=== PATIENT | female | born 1955 | race Caucasian/White ===

== ENCOUNTER 2018-01-16 08:42 | Inpatient (IN) | payer MEDICARE, SELFPAY ==
[2018-01-15 12:33] VITALS: BMI 25.2
[2018-01-16] VITALS (14 sets, daily range): BP systolic 93–165; BP diastolic 60–99; PULSE 66–86; RESP 14–18; TEMP 36.2–36.8; O2SAT 92–98; BMI 25.2
--- NOTE | 2018-01-16 | DI.RAD.S_ITS ---
PROCEDURE: XR LUMBAR SPINE 2-3V INDICATIONS: L2-3, L3-4 LAMI AND FUSION TECHNIQUE: 2 views of the lumbar spine were acquired. COMPARISON: [facility], , L-SPINE W&WO CONTRAST, 03/23/2016, 13:45. FINDINGS: 2 intraoperative fluoroscopic views of the lumbar spine demonstrates interval postsurgical changes status post posterior fusion at L2-L4 with intervertebral spacers at L2-L3 and L3-L4. IMPRESSION: 1. Intraoperative fluoroscopic views demonstrate postsurgical changes at L2-L4. Dictated by: Dereje Osuna M.D. on 01/16/2018 at 20:11 Approved by: Dereje Osuna M.D. on 01/16/2018 at 20:13
--- NOTE | 2018-01-16 12:10 | PM.PREOP ---
Pre-operative Note Interval Note Pre-op Check: History & Physical Reviewed by Physician and Exam Performed
--- NOTE | 2018-01-16 12:20 | PM.OP.1 ---
Operative Date/Time/Diagnoses Date of procedure: 01/16/18 Time of procedure: 17:57 Pre-op diagnosis: Lumbar stenosis with radiculopathy Scoliosis Post-op diagnosis: same Procedure & Clinicians Procedure: L2-3, L3-4 anterior fusion with cage L2-3, L3-4 posterior fusion L2, L3, L4 screws Iliac crest bone graft L2-3, L3-4 laminectomy Use of microscope Placement of epidural catheter hardware removal of previous L45 screws Same procedure as scheduled: Yes Indications: [age] year old female with intractable pain from stenosis. They had failed conservative management and requested operative intervention. Risks and benefits of surgery were discussed and appropriate consents were obtained. Surgeon: Guy Ojeda Senior Sustainability Advisor: Natali Smith Anesthesia Type: General Operative Notes Findings: None Closure Type: primary Specimen(s): none sent Implants & Drains: Nuvasive XLIF and Reline MAS and open screws Applied: catheter Estimated Blood Loss (mL): 100 Procedure in detail: Patient was brought to the operating room and intubated on the table. Time-out was performed. They were then rolled over to the lateral decubitus position with the [id number]. The table was bent and they were taped down in the correct position. X-rays were taken to confirm a true AP and lateral. Preoperative antibiotics were given. The left flank and back was prepped and draped in standard sterile fashion. Using fluoroscopy, a 3 cm incision was made above the iliac crest. We bluntly dissected down with Metzenbaum scissors and split the 3 abdominal muscle layers. We dissected out the retroperitoneal space and using finger guidance, brought our 1st dilator down to the psoas muscle. Using neuromonitoring and fluoroscopy, we placed it through the psoas onto the L3-4 disc space in an anterior position and gradually pulled the dilator posteriorly along the disc space. We placed our guidewire and measured our depth for the retractor. We then dilated with the next 2 dilators and then placed our retractor over the dilators. Position was confirmed with fluoroscopy and the retractor was locked down to the bar. We opened up the retractor and checked with neuro monitoring. We then placed the isacc and again checked with neuro monitoring. The retractor was opened further and the ALL retractor was placed. An annulotomy was performed. We symptoms to pass the Hall across the disc space but could not get past the left L4 screw which was protruding up through the disc itself. At this point are as we would have to remove her hardware in the decubitus position. We used fluoro and made a 3 cm incision to the left of the midline. We used Bovie to come down to split the fascia and exposed the screws. The screws were removed. The wound was irrigated and a nylon stitch was placed on the skin. We then went back up to the lateral incision and again used our dilators to place our retractor and opened it up as before with monitoring and x-ray. We then could pass the Hall across the disc and released the lateral annulus. We then performed a complete diskectomy with ring curette, pituitary, box osteotome. We then used sequentially larger trials and confirmed under fluoroscopy. An XLIF cage was packed with Osteocell bone graft and impacted into the L3-4 disc space with fluoroscopy for the anterior fusion at this level. The wound was irrigated. The retractor was closed down. The isacc was removed. We carefully removed the retractor with direct visualization to make sure there was no neurovascular or abdominal injury. We then repeated this procedure at the L2-3 level. We used neural monitoring for dilators place, placed our retractor, did a complete diskectomy with lateral release, and placed another cage packed with bone graft at the L2-3 level for anterior fusion. Final x-rays were taken. The muscle fascia was closed, superficial tissue was closed. The skin was closed. Sterile dressings were placed. The patient was then rolled over on the well-padded prone position on the Reilly table. The back was again prepped and draped in standard sterile fashion. Using fluoroscopy for localization, a 10 cm incision was made in the midline utilizing her previous incision. We dissected down the right sided paraspinal muscles to expose the lamina and confirmed our position. We then exposed the transverse processes at the level of fusion. We exposed along her previous cortical screws and they were removed. We then began placing our screws. A bur was used to decorticate the junction of the facet and transverse process. We then advanced a gear shifter down the pedicle using neuro monitoring. We checked with the ball probe to confirm a floor and 4 torres on the pedicle. We then tapped also with neuro monitoring. We checked again with the ball probe and then placed our screw with neuro monitoring. The screws were placed in this fashion down the right pedicles of L2, L3, and L4. The bozena was loosely placed and x-rays were taken to confirm positioning and then the set screws were locked down. Using fluoro, we then extended her left-sided incision that we had made earlier and used Bovie to split down through the fascia. We then percutaneously placed a Jamshidi needle down the left pedicles of L2, L3 and L4 with fluoroscopy and monitoring. We used guidewires and then tapped and placed our percutaneous screws under fluoroscopy and monitoring. We then placed a bozena and locked it down. Final x-rays were taken We then brought in the microscope. A laminectomy was performed at L2-3 and L3-4 with a bur and Kerrison rongeurs. We carefully depress the dura to reach to the opposite side and decompress the entire central canal. We cleared out the neural foramen. In the end the ball probe could be placed cephalad and caudally across to the opposite side in the foramen and everything was opened. The wound was copiously irrigated. A small stab incision was made over the PSIS and a Jamshidi needle was placed into the iliac crest and several mL of bone marrow was aspirated. This was mixed with our locally harvested bone graft as well as the remaining Osteocell and placed in the posterolateral gutter for fusion at L2-3 and L3-4. An epidural catheter was primed with 8mL of 0.25% bupivacaine and 100 mcg fentanyl. The dura was depressed under the cephalad lamina with a ball probe and the epidural catheter was gently advanced 6 cm cephalad. The fascia was then closed. The epidural was then injected without resistance. The catheter was pulled and we closed more over the fascia. Vancomycin powder was placed in the wound. The superficial and skin were closed. Sterile dressing was placed. The patient was then rolled over, extubated, brought to the recovery room with no complications. Complications: none Condition: stable Disposition: PACU Plan for aftercare: Inpatient. Up with physical therapy.
[2018-01-16] MEDS: fentaNYL 100 MCG/2 ML INJ 50 MCG IV ×5 (12:55→19:13)
[2018-01-16] MEDS: CEFAZOLIN 2 GM/100 ML FROZ.PIGGY IV ×2 (13:59→20:56)
--- NOTE | 2018-01-16 14:21 | SUR.OPER ---
Right lateral on padded OR table. Head on pillow, gel axillary roll, pillow to support left arm. Legs flexed, pillows between legs, gel pad under down leg and ankle. Multiple passes of 3 inch cloth tape across shoulder, hip, upper and lower legs to secure patient on OR table.
--- NOTE | 2018-01-16 14:32 | SUR.OPER ---
Prone on spine table, head in foam head support, padded chest and pelvic supports, gel pad at knees, lower legs supported by pillows; nipples, genitalia and toes free of pressure, arms secured on foam padded arm boards at <90 degrees abduction. Tape over blanket at thigh secured to table.
[2018-01-16] MEDS: THROMBIN (BOVINE) 5,000 UNIT VIAL 5000 UNIT TOP (14:48)
[2018-01-16] MEDS: VANCOMYCIN 1,000 MG VIAL 1000 MG TOP (14:48)
[2018-01-16] MEDS: BUPIVACAINE 0.25% (PF) 8 ML, fentaNYL 100 MCG INJ (14:49)
[2018-01-16] MEDS: SODIUM CHLORIDE 0.9% 1,000 ML, GENTAMICIN 80 MG IRR ×2 (14:49→14:53)
[2018-01-16] MEDS: MEPERIDINE 50 MG/ML 25 MG IV (18:31)
[2018-01-16] MEDS: ONDANSETRON 4 MG/2 ML INJ IV (19:00)
[2018-01-16] MEDS: LORazepam 2 MG/ML SYRINGE 0.5 MG IV (19:14)
[2018-01-16] MEDS: HYDROCODONE/ACET 10/325 TABLET 2 TAB PO (20:11)
[2018-01-16] MEDS: hydrOXYzine pamoate 25 MG CAPSULE PO (20:14)
[2018-01-16] MEDS: LACTATED RINGERS 1,000 ML 125 ML IV (20:50)
[2018-01-16] MEDS: DULOXETINE 30 MG CAPSULE 60 MG PO (21:14)
[2018-01-16] MEDS: MELOXICAM 7.5 MG TABLET 15 MG PO (21:21)
[2018-01-16] MEDS: NICOTINE 1 EACH PO (21:22)
[2018-01-16] MEDS: LORazepam 1 MG TABLET 2 MG PO (21:25)
[2018-01-16] MEDS: TRAZODONE 50 MG TABLET 25 MG PO (21:25)
[2018-01-16] MEDS: PREGABALIN 75 MG CAPSULE PO (21:26)
[2018-01-16] MEDS: dilTIAZem CD 120 MG CAP PO (22:07)
[2018-01-16] MEDS: HYDROMORPHONE PCA 6 MG/30 ML PCA.VIAL IV (22:23)
--- NOTE | 2018-01-16 22:41 | PC.NURSE ---
Pt arrived to floor from PACU at 1935, A&Ox3, awake and conversive with staff. Pt c/o pain 02/16, PRN meds given per SEP. Pt denies numbness and tingling, able to wiggle toes bilaterally, +pps, bilateral foot SCD's applied. Denies nausea. RA 96%, LS clear. Dressing to lower back and L flank dressing CDI. Ingram patent, secured, and draining clear yellow urine. Pt orientated to room, call light, and bed controls. Call light in reach. BA active. Will continue to monitor.
[2018-01-17] MEDS: hydrOXYzine pamoate 25 MG CAPSULE PO ×4 (00:49→22:51)
[2018-01-17 00:57] VITALS: BP 135/86; PULSE 80; RESP 16; TEMP 36.7; O2SAT 91
[2018-01-17] MEDS: CEFAZOLIN 2 GM/100 ML FROZ.PIGGY IV (04:07)
[2018-01-17 04:13] VITALS: BP 130/75; PULSE 87; RESP 16; TEMP 37.2; O2SAT 91
[2018-01-17] MEDS: LACTATED RINGERS 1,000 ML 125 ML IV (05:06)
[2018-01-17] MEDS: HYDROMORPHONE PCA 6 MG/30 ML PCA.VIAL IV ×3 (05:59→21:21)
[2018-01-17 06:44] LABS: Hematocrit 35.2 % (36-46); Hemoglobin 11.9 g/dL (12.0-16.0)
[2018-01-17 08:00] VITALS: BP 151/84; PULSE 86; RESP 16; TEMP 37.1; O2SAT 92
[2018-01-17] MEDS: METHOCARBAMOL 500 MG TABLET 750 MG PO (08:09)
[2018-01-17] MEDS: DULOXETINE 30 MG CAPSULE 60 MG PO ×2 (08:09→21:19)
[2018-01-17] MEDS: DOCUSATE 100 MG CAPSULE PO (08:10)
[2018-01-17] MEDS: HYDROCODONE/ACET 10/325 TABLET 2 TAB PO ×2 (08:10→12:45)
[2018-01-17] MEDS: PREGABALIN 75 MG CAPSULE PO ×2 (08:10→21:20)
--- NOTE | 2018-01-17 08:10 | PM.PNPO.1 ---
Subjective Date Patient Seen: 01/17/18 Time Patient Seen: 08:11 Interval history: Rough night. Pain 8/10 currently. All in the back and radiating around to the groin. No leg pain. Exam Vital Signs (past 8 hours): - 01/17/18 00:57 01/17/18 04:13 Temperature 98.0 F 99.0 F Pulse Rate 80 87 Respiratory Rate 16 16 Blood Pressure 135/86 H 130/75 H Pulse Oximetry 91 91 Oxygen Delivery Method Room Air Const Orientation: alert and oriented x3 Back/Spine/Pelvis Other: 5/5 motor both lower extremities. Moderate drainage on posterior dressing. Objective Labs Result Diagrams: 01/17/18 06:20 Labs: Laboratory Results - last 24 hr 01/17/18 06:20 Hgb 11.9 L Hct 35.2 L Assessment & Plan Post-op Postoperative Procedures Operation Date: 01/16/18 11:15 Actual Procedures Side Surgeon p L2-3,L3-4 Laminectomy & Instru Ant/Post Fusion w/Bone Graft,Removal Old Screws Guy Ojeda MD stable status post laminectomy and fusion. We discussed pain control issues which are always difficult when someone comes in with a high preoperative narcotic tolerance. Mobilized with physical therapy. She did not tolerate the sequential compression devices on her feet, but we will mash filter cloth changer to calf SCDs as she has tolerated these before in the past. I anticipate several more days in the hospital. Time Spent With Patient less than 15 minutes Quality VTE Deep Vein Thrombosis/Pulmonary Embolism Present on Admission: No
[2018-01-17] MEDS: NICOTINE 1 EACH PO ×5 (08:12→22:52)
--- NOTE | 2018-01-17 08:13 | P.PN_ITS ---
Subjective Date Patient Seen: 01/17/18 Time Patient Seen: 08:11 Interval history: Rough night. Pain 8/10 currently. All in the back and radiating around to the groin. No leg pain. Exam Vital Signs (past 8 hours): - 01/17/18 00:57 01/17/18 04:13 Temperature 98.0 F 99.0 F Pulse Rate 80 87 Respiratory Rate 16 16 Blood Pressure 135/86 H 130/75 H Pulse Oximetry 91 91 Oxygen Delivery Method Room Air Const Orientation: alert and oriented x3 Back/Spine/Pelvis Other: 5/5 motor both lower extremities. Moderate drainage on posterior dressing. Objective Labs Result Diagrams: 01/17/18 06:20 Labs: Laboratory Results - last 24 hr 01/17/18 06:20 Hgb 11.9 L Hct 35.2 L Assessment & Plan Post-op Postoperative Procedures Operation Date: 01/16/18 11:15 Actual Procedures Side Surgeon p L2-3,L3-4 Laminectomy & Instru Ant/Post Fusion w/Bone Graft,Removal Old Screws Guy Ojeda MD stable status post laminectomy and fusion. We discussed pain control issues which are always difficult when someone comes in with a high preoperative narcotic tolerance. Mobilized with physical therapy. She did not tolerate the sequential compression devices on her feet, but we will change agent to calf SCDs as she has tolerated these before in the past. I anticipate several more days in the hospital. Time Spent With Patient less than 15 minutes Quality VTE Deep Vein Thrombosis/Pulmonary Embolism Present on Admission: No
[2018-01-17] MEDS: ONDANSETRON 4 MG/2 ML INJ IV (10:32)
[2018-01-17] MEDS: NALBUPHINE 20 MG/ML AMPUL 5 MG IV (10:42)
[2018-01-17 12:00] VITALS: BP 143/78; PULSE 88; RESP 14; TEMP 37.3; O2SAT 91
--- NOTE | 2018-01-17 12:03 | PT.IPTN ---
Current Diagnoses Scoliosis, unspecified (01/16/18) Spinal stenosis, lumbar region with neurogenic claudication (01/16/18) Other specified postprocedural states (01/16/18) Surgery Performed Operation Date: 01/16/18 11:15 Actual Procedures p L2-3,L3-4 Laminectomy & Instru Ant/Post Fusion w/Bone Graft,Removal Old Screws - Guy Ojeda MD Physical Therapy Treatment Note M3 PT-IP Subjective Start: 01/17/18 12:00 Freq: NEEDED Status: Active Protocol: Document 01/17/18 12:00 IJS (Rec: 01/17/18 12:02 IJS [id number]) Subjective Physical Therapy Visit Type Visit Start Time 11:55 Visit Stop Time 11:56 Total Visit Minutes 1 Notes Patient on hold this a.m. secondary to poor pain control . Nursing agreed and is contacting the MD to get new pain orders. Will check again this p.m.
[2018-01-17] MEDS: METHOCARBAMOL 500 MG TABLET 1500 MG PO (12:45)
--- NOTE | 2018-01-17 13:13 | CM.DANOTE ---
DCP Assessment/Chart Review Patient is a 62 year old female who was admitted on 01/16/18 for Lami Fusion bone graft. Pt has MCR for insurance and her PCP is Dr. Degroot. EMR was reviewed. Per MD, pt likely here another few days and to mobilize with PT. Per PT, eval deferred due to pain management issues. SW attempted bedside assessment and pt sleeping soundly after pain medication. Plan: SW to follow closely later today for bedside assessment and PT eval and recommendations. MIGUELITO Carcamo
--- NOTE | 2018-01-17 15:27 | PC.NURSE ---
Ortho: Lots of pain today. Discussed issue w/DR. Ojeda x2. This am had orals w/senior science consultant then called the second time and changed senior science consultant dose and added cont drip as well. Pt reporting she is much more comfortable. was asked about steriods, he doesn't want to use those. Pt has not been up w/PT today yet, but they will try one more time later. Has not wanted to eat today but said she might take a little dinner. Has had a lot of sciatica type pain in her back radiating down the legs bilat. Has had an ice pack to the back and a warm blanket to the abd which she says is helpful. Ref to allow dressing change for today. Pt says she is to painful to move that much and back is to sensative to remove the tape. Hopefully will feel better tomorrow. 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
[2018-01-17 15:59] VITALS: BP 111/71; PULSE 104; RESP 18; TEMP 36.9; O2SAT 92
--- NOTE | 2018-01-17 16:35 | PT.IIE ---
Current Diagnoses Scoliosis, unspecified (01/16/18) Spinal stenosis, lumbar region with neurogenic claudication (01/16/18) Other specified postprocedural states (01/16/18) Surgery Performed Operation Date: 01/16/18 11:15 Actual Procedures p L2-3,L3-4 Laminectomy & Instru Ant/Post Fusion w/Bone Graft,Removal Old Screws - Guy Ojeda MD Surgical History (Last Updated 01/15/18 @ 13:37 by Denise Navarro RN) History of section (Acute) History of lumbar fusion (Acute) History of reconstruction of left breast (Acute) History of removal of Port-a-Cath (Acute) Hx of LASIK (Acute) Hx of left mastectomy (Acute) Hx of tonsillectomy (Acute) Medical History (Last Updated 01/15/18 @ 13:41 by Denise Navarro RN) Anxiety (Acute) Asthma (Acute) Bug bite (Acute) COPD (chronic obstructive pulmonary disease) (Acute) Cancer of left breast (Acute) Cellulitis of right lower extremity (Acute) Chronic pain (Acute) Constipation (Acute) DDD (degenerative disc disease), cervical (Acute) DDD (degenerative disc disease), lumbar (Acute) Depression (Acute) Fibromyalgia (Acute) GERD (gastroesophageal reflux disease) (Acute) HTN (hypertension) (Acute) History of hysterectomy (Acute) Melanoma (Acute) Neuropathy (Acute) Panic attacks (Acute) Pneumonia (Acute) Pneumothorax (Acute) Raynaud's phenomenon (Acute) SCC (squamous cell carcinoma) (Acute) Stomach ulcer (Acute) Urinary tract infection (Acute) Physical Therapy Inpatient Evaluation/Re-Eval M1 PT/OT-IP Prior Functional Status Start: 01/17/18 12:00 Freq: NEEDED Status: Active Protocol: Document 01/17/18 15:50 MDD (Rec: 01/17/18 17:11 MDD [id number]) Medical Review Prior Functional Status Medical History Reviewed Yes Mobility and Gait Independent with no AD. Does have a single point cane at home. Activities of Daily Living and IADL's Independent. Prior Functional Level (Other details) Does not work due to disability. Social History Household Members family children Living Arrangements House Number of Floors (Floors) 3 or More Floors Number of Stairs To Enter/Railing? 14 stairs to second floor bedroom, railing on L, 2 flights total. Home Environment Standard Height Toilet Tub/Shower Home Equipment Straight Cane Grab Bars Near Toilet Grab Bars In Shower Employment Status Unemployed Additional Social History Comment Complicated family situation at home. Ex will be staying with her to assist initially after hospital d/c. M2 PT-IP Current Condition Start: 01/17/18 12:00 Freq: NEEDED Status: Active Protocol: Document 01/17/18 15:50 MDD (Rec: 01/17/18 17:11 [facility] [id number]) Physical Therapy Current Condition Current Condition Evaluation Date 01/17/18 Treatment Diagnosis L2-3, L3-4 anterior fusion, low back pain, impaired mobility Onset Date 01/16/18 Precautions Lumbar Precautions Log Roll No Twisting Limit Bending Lifting Restriction of 10 lbs Gait Belt above Incisional Area M3 PT-IP Subjective Start: 01/17/18 12:00 Freq: NEEDED Status: Active Protocol: Document 01/17/18 15:50 MDD (Rec: 01/17/18 17:11 [facility] [id number]) Subjective Physical Therapy Visit Type Type Initial Evaluation Visit Start Time 15:50 Visit Stop Time 16:35 Total Visit Minutes 45 Number of MEAL TEMPERER Visits 0 Physical Therapy Visit Comments Patient Comments Pt complaining of high pain levels throughout the day. Very drowsy from pain medications, but agreeable to participate in therapy on 3rd attempt. Short Term Goals improve mobility for removal of perez catheter Therapy Pain Assessment Pain When Pain Assessed At Rest Pain Present Pain Present Pain Reported Location Back Intensity 7 Scale Used Numeric (1 - 10) Description Aching Acute Pain Behaviors Facial Grimacing Guarding Pain Management Techniques Timing of Activity with Medications M4 PT-IP Mobility and Gait Start: 01/17/18 12:00 Freq: NEEDED Status: Active Protocol: Document 01/17/18 15:50 MDD (Rec: 01/17/18 17:11 MDD [id number]) PT-Bed Mobility Assessment Rolling Type of Rolling Log Rolling Roll to Right Level of Assist Standby Assistance Supine to Sit Supine to Sit Standby Assistance Head of Bed Elevated Sit to Supine Sit to Supine Standby Assistance Head of Bed Elevated Scooting Scooting to Edge of Bed Standby Assistance PT-Transfer Assessment Sit to and From Stand Sit to and from Stand Standby Assistance Equipment Transfer Assistive Device Gait Belt Front Wheeled Walker Orthotic/Prosthetic Devices or Brace: No Transfers Transfer Destination Bed Transfer Ability Level of Assist Standby Assistance Contact Guard Assistance Gait Assessment Gait Gait Assistance Required: Contact Guard Assist Distance (Feet) (feet) 20 Able to Maintain Weight Bearing Status Yes During Gait Assistive Devices Assistive Device Gait Belt Front Wheeled Walker Orthotic/Prosthetic Devices or Brace: No Gait Deviations General Gait Pattern Within Normal Limits Antalgic PT-Balance Assessment Sitting Balance and Reactions Static Sitting Balance Ability Normal Dynamic Sitting Balance Ability Normal Standing Balance and Reactions Static Standing Balance Ability Normal M5 PT-IP Objective Assessments Start: 01/17/18 12:00 Freq: NEEDED Status: Active Protocol: Document 01/17/18 15:50 MDD (Rec: 01/17/18 17:11 MDD [id number]) Orientation Orientation/Cognition Level of Alertness Lethargic Orientation Name Age Birthday Month Date Year Day of Week Place Situation Language Function Ability No Deficits Noted Safety Awareness Understands Safety Issues Memory Description No Deficits Noted Gross Range of Motion Upper Extremity ROM Assessment Within Functional Limits Lower Extremity ROM Assessment Within Functional Limits Strength Lower Extremity Strength Assessment Within Functional Limits Coordination Assessment Gross Coordination Gross Coordination WNL Sensation Assessment Sensation Gross Sensation Right LE Impaired Left LE Impaired Light Touch Impaired Sensation Description Numbness Tingling Comments Sensation Comments 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 Today reports mild tingling/numb sensation up to distal knee B. Muscle Tone Muscle Tone WNL Yes M6 PT-IP Treatment Start: 01/17/18 12:00 Freq: NEEDED Status: Active Protocol: Document 01/17/18 15:50 MDD (Rec: 01/17/18 17:11 MDD [id number]) Physical Therapy Treatment Exercises Exercises Ankle Pumps Education Education Provided Precautions Safety M7 PT-IP Assessment and Plan Start: 01/17/18 12:00 Freq: NEEDED Status: Active Protocol: Document 01/17/18 15:50 MDD (Rec: 01/17/18 17:11 MDD [id number]) PT Summary Assessment and Plan Potential Rehabilitation Potential Excellent Status of Condition at Evaluation Stable Summary Impairments Pain Bed Mobility Transfers Gait Activity Tolerance Progress Towards Goals Progressing Toward Goals Slow Progress due to Pain Assessment Summary Despite high pain levels throughout the day, pt demos ability to safely ambulate in room with front wheeled walker and perform bed mobility with SBA and head of bed elevated. Goals Bed Mobility Goal Independent Transfer Goal Independent Gait Goal Independent Gait Distance 50 feet on level ground with least restrictive AD Other Goals Ascend/descend 14 steps with L handrail with SBA Days to Meet Goals 3 Frequency of Treatment Frequency Of Treatment Twice a Day Treatment Plan Physical Therapy Treatment Plan Bed Mobility Training Transfer Training Gait Training Therapeutic Exercise Post Op Education Discharge Planning Recommendations To Nursing Amount of Assist Needed Standby Assistance 1 Person Assist Discharge Recommendations PT Discharge Recommendations Home Home with Assistance
[2018-01-17] MEDS: LORATADINE 10 MG TABLET PO (16:48)
--- NOTE | 2018-01-17 17:13 | PC.NURSE ---
Pt awake and alert in bed. Reports good pain control this afternoon and willing to work with P.T. Is able to log roll self, sit at edge of bed, stand and ambulate around room. Reports increasing pain with activity, but pursues and uses foundation stage teacher appropriately. Returned to bed and positioned for comfort. Dressing changed to graft site and back as per dayshift instruction per MD. Coversite in place x 2. See assessment.
--- NOTE | 2018-01-17 17:14 | OT.IP.TRT ---
Current Diagnoses Scoliosis, unspecified (01/16/18) Spinal stenosis, lumbar region with neurogenic claudication (01/16/18) Other specified postprocedural states (01/16/18) Surgery Performed Operation Date: 01/16/18 11:15 Actual Procedures p L2-3,L3-4 Laminectomy & Instru Ant/Post Fusion w/Bone Graft,Removal Old Screws - Guy Ojeda MD Occupational Therapy Treatment Note M3 OT- IP Subjective and Pain Start: 01/17/18 17:12 Freq: Status: Active Protocol: Document 01/17/18 17:12 PJM (Rec: 01/17/18 17:14 PJM [id number]) OT- Subjective Occupational Therapy Visit Type Type Administrative Note Visit Start Time 15:05 Notes OT referral received. Pt not appropriate for OT evaluation today due to decreased pain control. Will initiate eval in AM as medical status permits.
[2018-01-17] MEDS: diphenhydrAMINE 25 MG TABLET PO (18:30)
[2018-01-17 20:44] VITALS: BP 94/60; PULSE 90; RESP 20; TEMP 36.9; O2SAT 92
[2018-01-17] MEDS: dilTIAZem CD 180 MG CAP PO (21:18)
[2018-01-17] MEDS: dilTIAZem CD 120 MG CAP PO (21:18)
[2018-01-17] MEDS: LORazepam 1 MG TABLET 2 MG PO (21:19)
[2018-01-17] MEDS: MELOXICAM 7.5 MG TABLET 15 MG PO (21:20)
[2018-01-17] MEDS: TRAZODONE 50 MG TABLET 25 MG PO (21:21)
[2018-01-18] VITALS (7 sets, daily range): BP systolic 91–124; BP diastolic 52–71; PULSE 68–86; RESP 12–19; TEMP 36.6–37.6; O2SAT 90–98
[2018-01-18] MEDS: SODIUM CHLORIDE 0.9% 500 ML 21 ML IV (05:05)
[2018-01-18] MEDS: HYDROMORPHONE PCA 6 MG/30 ML PCA.VIAL IV ×3 (06:02→21:29)
[2018-01-18] MEDS: NICOTINE 1 EACH PO ×8 (06:19→23:50)
--- NOTE | 2018-01-18 08:54 | CM.DANOTE ---
Per PT/OT, pt remained to painful yesterday to eval and assess for d/c needs and will attempt again this morning. Pt not medically stable to d/c yet today. SW met bedside with pt and explained role and pt was grimacing in pain and stated she has not been sleeping well and is still very painful. Pt confirms that she lives in [place] with her adult Dtr and 2 or 3 grandchildren and they are available for assist if needed at d/c. Pt also states that her exhusband will be staying with them to assist at discharge. Pt denies any hx of HH or SNF but states that if she is still in this much pain she would be agreeable to HH or other recommendations. Plan: SW to follow closely later today after PT/OT eval and recommendations to determine if pt will be safe for d/c home with family support and r/o HH. 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 Is this patient on Medicare? Yes Is the admit diagnosis the same? Yes Prior Living Arrangements House Household Members family children Type of transporation used prior to Drives own vehicle admit Independent with ADL's Yes Is patient alert and oriented? Yes Discharge Plan Home with Home Health Review Status In Process Next Review Type Discharge Review Document 01/18/18 08:53 BF (Rec: 01/18/18 08:54 [id number]) Discharge Planning Assessment Assigned Wind Tunnel Mechanic JOB PLACEMENT SPECIALIST History Provided By Patient Medical Record Has Patient been admitted in last 30 No days? Is this patient on Medicare? Yes Is the admit diagnosis the same? Yes Prior Living Arrangements House Household Members family children Type of transporation used prior to Drives own vehicle admit Independent with ADL's Yes Is patient alert and oriented? Yes Community Services Needed at Discharge Physical Therapy Occupational Therapy Home Health Nurse Discharge Plan Home with Home Health Transportation Arrangement Family can provide transport If patient plan is home with home health No: Waiting for PT/OT eval : Has signed face to face form been completed? Review Status In Process Next Review Type Discharge Review
--- NOTE | 2018-01-18 09:06 | P.PN_ITS ---
Subjective Date Patient Seen: 01/18/18 Time Patient Seen: 09:00 Interval history: Patient seen bedside s/p L23 and L34 laminectomies and instrumented anterior/posterior fusion with bone graft, removal old screws POD # 2. Patient states that pain is well controlled but feels very tired and does not like being woken up constantly. She does admit to pain with movement. She would like to go home, but has to enter her house via a six-step ladder. We discussed that this breaks her spinal precautions but she is insistent that she has no other place to go. Exam Vital Signs (past 8 hours): - 01/18/18 06:02 Temperature 99.5 F Pulse Rate 76 Respiratory Rate 16 Blood Pressure 118/70 Pulse Oximetry 91 Oxygen Delivery Method Room Air Oxygen Flow Rate 0 Narrative Exam Narrative: Patient is a well-developed well nourished in no acute distress. Patient is alert and oriented x3. On examination the dressing is clean dry and intact. She has full range of motion in the ankle 2+ pulses and calves are soft and compressible. Sensation is intact in bilateral lower extremities. Objective Labs Result Diagrams: 01/17/18 06:20 Assessment & Plan Post-op (1) Lumbar stenosis with neurogenic claudication: Current Visit: Yes Status: Acute Postoperative Procedures Operation Date: 01/16/18 11:15 Actual Procedures Side Surgeon p L2-3,L3-4 Laminectomy & Instru Ant/Post Fusion w/Bone Graft,Removal Old Screws Guy Ojeda MD Patient is postop day 2 status post procedure. She has been working with PT and OT and would like to go home. She has extreme pain with movement. In addition, she does have to climb a 6 step ladder to enter her home. This break her spinal precautions and could be a barrier to going home. Continue with PT and OT, consult discharge planning. All questions answered at time of the exam. Time Spent With Patient less than 15 minutes Quality VTE Deep Vein Thrombosis/Pulmonary Embolism Present on Admission: No
[2018-01-18] MEDS: METHOCARBAMOL 500 MG TABLET 1500 MG PO (10:15)
[2018-01-18] MEDS: HYDROCODONE/ACET 10/325 TABLET 2 TAB PO (10:16)
[2018-01-18] MEDS: DULOXETINE 30 MG CAPSULE 60 MG PO ×2 (10:17→21:23)
[2018-01-18] MEDS: PREGABALIN 75 MG CAPSULE PO ×2 (10:17→21:24)
[2018-01-18] MEDS: DOCUSATE 100 MG CAPSULE PO ×2 (10:17→21:23)
--- NOTE | 2018-01-18 11:14 | PT.IPTN ---
Current Diagnoses Scoliosis, unspecified (01/16/18) Spinal stenosis, lumbar region with neurogenic claudication (01/16/18) Other specified postprocedural states (01/16/18) Surgery Performed Operation Date: 01/16/18 11:15 Actual Procedures p L2-3,L3-4 Laminectomy & Instru Ant/Post Fusion w/Bone Graft,Removal Old Screws - Guy Ojeda MD Physical Therapy Treatment Note M2 PT-IP Current Condition Start: 01/17/18 12:00 Freq: NEEDED Status: Active Protocol: Document 01/17/18 15:50 MDD (Rec: 01/17/18 17:11 MDD [id number]) Physical Therapy Current Condition Current Condition Evaluation Date 01/17/18 Treatment Diagnosis L2-3, L3-4 anterior fusion, low back pain, impaired mobility Onset Date 01/16/18 Precautions Lumbar Precautions Log Roll No Twisting Limit Bending Lifting Restriction of 10 lbs Gait Belt above Incisional Area M3 PT-IP Subjective Start: 01/17/18 12:00 Freq: NEEDED Status: Active Protocol: Document 01/18/18 13:52 MDD (Rec: 01/18/18 14:03 MDD [email or web address]) Subjective Physical Therapy Visit Type Type Treatment Note Visit Start Time 10:48 Visit Stop Time 11:14 Total Visit Minutes 26 Number of BASEBALL SCOUT Visits 0 Physical Therapy Visit Comments Patient Comments Pt reports feeling a bit better this morning. Agreeable to participate with PT for brief session. Therapy Pain Assessment Pain When Pain Assessed At Rest Pain Present Pain Present Pain Reported Location Groin Intensity 7 Scale Used Numeric (1 - 10) Description Aching Pain Behaviors Facial Grimacing Guarding M4 PT-IP Mobility and Gait Start: 01/17/18 12:00 Freq: NEEDED Status: Active Protocol: Document 01/17/18 15:50 MDD (Rec: 01/17/18 17:11 MDD [id number]) PT-Bed Mobility Assessment Rolling Type of Rolling Log Rolling Roll to Right Level of Assist Standby Assistance Supine to Sit Supine to Sit Standby Assistance Head of Bed Elevated Sit to Supine Sit to Supine Standby Assistance Head of Bed Elevated Scooting Scooting to Edge of Bed Standby Assistance PT-Transfer Assessment Sit to and From Stand Sit to and from Stand Standby Assistance Equipment Transfer Assistive Device Gait Belt Front Wheeled Walker Orthotic/Prosthetic Devices or Brace: No Transfers Transfer Destination Bed Transfer Ability Level of Assist Standby Assistance Contact Guard Assistance Gait Assessment Gait Gait Assistance Required: Contact Guard Assist Distance (Feet) (feet) 20 Able to Maintain Weight Bearing Status Yes During Gait Assistive Devices Assistive Device Gait Belt Front Wheeled Walker Orthotic/Prosthetic Devices or Brace: No Gait Deviations General Gait Pattern Within Normal Limits Antalgic PT-Balance Assessment Sitting Balance and Reactions Static Sitting Balance Ability Normal Dynamic Sitting Balance Ability Normal Standing Balance and Reactions Static Standing Balance Ability Normal M5 PT-IP Objective Assessments Start: 01/17/18 12:00 Freq: NEEDED Status: Active Protocol: Document 01/17/18 15:50 MDD (Rec: 01/17/18 17:11 MDD [id number]) Orientation Orientation/Cognition Level of Alertness Lethargic Orientation Name Age Birthday Month Date Year Day of Week Place Situation Language Function Ability No Deficits Noted Safety Awareness Understands Safety Issues Memory Description No Deficits Noted Gross Range of Motion Upper Extremity ROM Assessment Within Functional Limits Lower Extremity ROM Assessment Within Functional Limits Strength Lower Extremity Strength Assessment Within Functional Limits Coordination Assessment Gross Coordination Gross Coordination WNL Sensation Assessment Sensation Gross Sensation Right LE Impaired Left LE Impaired Light Touch Impaired Sensation Description Numbness Tingling Comments Sensation Comments 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 Today reports mild tingling/numb sensation up to distal knee B. Muscle Tone Muscle Tone WNL Yes M6 PT-IP Treatment Start: 01/17/18 12:00 Freq: NEEDED Status: Active Protocol: Document 01/18/18 13:52 MDD (Rec: 01/18/18 14:03 MDD [id number]) Physical Therapy Treatment Other Treatments Other Treatment Performed Reviewed bed mobility, pt demo 's supine to sit with SBA with HOB elevated. Sit to stand with SBA, demo's impulsiveness with movement. Demo's ability to stand 5 minutes total with varying UE support on walker when performing IV adjustments, perez adjustment etc. Performed short gait in room x 25 feet and demo'd stand to sit transfer w/ cueing for proper sequencing/ use of armrests. M7 PT-IP Assessment and Plan Start: 01/17/18 12:00 Freq: NEEDED Status: Active Protocol: Document 01/18/18 13:52 MDD (Rec: 01/18/18 14:03 MDD [email or web address]) PT Summary Assessment and Plan Potential Rehabilitation Potential Good Status of Condition at Evaluation Stable Summary Impairments Pain ROM Transfers Gait Activity Tolerance Assessment Summary Pain control continues to be challenging. Pt with very low activity tolerance due to pain. Additional information regarding d/c came to light today with pt reporting 6 step ladder to enter her home. Despite discussion regarding spinal precautions, pt denies this is a problem. Will not discuss options of alternative d/c at this time. Goals Bed Mobility Goal Independent Transfer Goal Independent Gait Goal Independent Gait Distance 50 feet on level ground with least restrictive AD Other Goals Ascend/descend 14 steps with L handrail with SBA Days to Meet Goals 2 Frequency of Treatment Frequency Of Treatment Twice a Day Treatment Plan Physical Therapy Treatment Plan Bed Mobility Training Transfer Training Gait Training Therapeutic Exercise Post Op Education Discharge Planning Recommendations To Nursing Amount of Assist Needed Standby Assistance 1 Person Assist Discharge Recommendations PT Discharge Recommendations Home Home with Assistance Other Discharge Recommendations Consider d/c to stepmother's home, or somewhere she is better able to access home Equipment Needed for Home Before front wheeled walker Discharge
--- NOTE | 2018-01-18 12:48 | OT.IP.EVAL ---
Current Diagnoses Scoliosis, unspecified (01/16/18) Spinal stenosis, lumbar region with neurogenic claudication (01/16/18) Other specified postprocedural states (01/16/18) Surgery Performed Operation Date: 01/16/18 11:15 Actual Procedures p L2-3,L3-4 Laminectomy & Instru Ant/Post Fusion w/Bone Graft,Removal Old Screws - Guy Ojeda MD Past Medical History (Last Updated 01/15/18 @ 13:41 by Denise Navarro RN) Anxiety (Acute) Asthma (Acute) Bug bite (Acute) COPD (chronic obstructive pulmonary disease) (Acute) Cancer of left breast (Acute) Cellulitis of right lower extremity (Acute) Chronic pain (Acute) Constipation (Acute) DDD (degenerative disc disease), cervical (Acute) DDD (degenerative disc disease), lumbar (Acute) Depression (Acute) Fibromyalgia (Acute) GERD (gastroesophageal reflux disease) (Acute) HTN (hypertension) (Acute) History of hysterectomy (Acute) Melanoma (Acute) Neuropathy (Acute) Panic attacks (Acute) Pneumonia (Acute) Pneumothorax (Acute) Raynaud's phenomenon (Acute) SCC (squamous cell carcinoma) (Acute) Stomach ulcer (Acute) Urinary tract infection (Acute) Surgical History (Last Updated 01/15/18 @ 13:37 by Denise Navarro RN) History of section (Acute) History of lumbar fusion (Acute) History of reconstruction of left breast (Acute) History of removal of Port-a-Cath (Acute) Hx of LASIK (Acute) Hx of left mastectomy (Acute) Hx of tonsillectomy (Acute) Occupational Therapy Inpatient Evaluation/Re-Eval M1 PT/OT-IP Prior Functional Status Start: 01/17/18 12:00 Freq: NEEDED Status: Active Protocol: Document 01/18/18 11:29 ADH (Rec: 01/18/18 12:48 ADH [id number]) Medical Review Prior Functional Status Medical History Reviewed Yes Mobility and Gait Independent with no AD. Does have a single point cane at home. Activities of Daily Living and IADL's Independent. Prior Functional Level (Other details) Does not work due to disability. Social History Household Members family children Living Arrangements House Number of Stairs To Enter/Railing? 6 step ladder d/t current home renovations Home Environment Walk in Shower Tub/Shower Additional Social History Comment pt reports bathroom on entry level financial analyst, but both showers are up flight of stairs. Pt reports no current hot water at home d /t renovation. Pt typically showers at mother's home nearby, which is accessible and has hot water. Pt denies ability to stay there after d/ c, d/t personal conflict with mother. M2 OT-IP Current Condition Start: 01/17/18 17:12 Freq: Status: Active Protocol: Document 01/18/18 11:29 ADH (Rec: 01/18/18 12:48 ADH [id number]) Occupational Therapy Current Condition Current Condition Evaluation Date 01/18/18 Treatment Diagnosis laminectomy Diagnosis Onset Date 01/16/18 Post Operative Precautions Lumbar Precautions Log Roll No Twisting Limit Bending Lifting Restriction of 10 lbs Gait Belt above Incisional Area M3 OT- IP Subjective and Pain Start: 01/17/18 17:12 Freq: Status: Active Protocol: Document 01/18/18 11:29 ADH (Rec: 01/18/18 12:48 ADH [id number]) OT- Subjective Occupational Therapy Visit Type Type Initial Evaluation Visit Start Time 11:04 Visit Stop Time 11:29 Notes Pt agreeable to OT services on 3rd attempt. First two attempts pt premedicated but continued to report c/o 7/10 pain, groggy, somnolent. Pt reporting insufficient pain relief despite use of FREIGHT RATE ANALYST. Pt unable to eat entire breakfast d/t sleepiness, likely impacted by pain management. Occupational Therapy Visit Comments Patient/Caregiver Goals pt stated goal to return home with family support. OT Pain Assessment Pain When Pain Assessed At Rest Pain Present Pain Present Pain Reported Location Groin Intensity 7 Scale Used Numeric (1 - 10) Pain Behaviors Calling Out Facial Grimacing Guarding Moaning Restlessness Wincing Management Techniques Distraction Re-positioning Timing of Activity with Medications M4 OT- IP ADL's Start: 01/17/18 17:12 Freq: Status: Active Protocol: Document 01/18/18 11:29 ADH (Rec: 01/18/18 12:48 ADH [id number]) OT XLP-[id number] General Evaluation Self-Feeding Ability Independent OT ADL-Toileting General Evaluation Toileting Ability Minimal Assistance Devices Toileting Assistive Devices Raised Toilet Seat Toilet Seat Rails Comments OT Toileting Comments Pt able to amb in/out of bathroom with BSC over toilet, with FWW and min A. Pt fatigued with effort, agreeable to rest break. Will reassess once catheter is removed. M6 OT- IP Functional Cognition Start: 01/17/18 17:12 Freq: Status: Active Protocol: Document 01/18/18 11:29 ADH (Rec: 01/18/18 12:48 ADH [id number]) Cognitive Factors Limiting Selfcare Function Cognitive Ability Level of Alertness Alert Drowsy Patient Orientation Name Month Year Day of Week Situation Attention Span Ability Capable of Focused Attention Ability to Follow Commands Able to Follow One Step Commands Able to Follow Multi-Step Commands Memory Description No Deficits Noted Safety Awareness Decreased Recall of Precautions Decreased Ability to Apply Precautions Underestimates Need for Assistance Problem Solving Ability Needs Assist to Identify Solutions OT- Vision and Hearing OT- Hearing Assessment OT- Hearing Assessment WFL OT- Vision Assessment Visual Acuity WFL M7 OT- IP Mobility and Balance Start: 01/17/18 17:12 Freq: Status: Active Protocol: Document 01/18/18 11:29 ADH (Rec: 01/18/18 12:48 ADH [id number]) OT-Transfer Assessment Sit to and From Stand Sit to and from Stand Minimal Assistance Use of Upper Extremities Transfers Transfer Ability Contact Guard Assistance Minimal Assistance Use of Upper Extremities Technique Transfer Destination Chair Toilet Transfer Technique Stand Step Pivot Devices Transfer Assistive Devices Gait Belt Front Wheeled Walker OT- Gait Assessment Gait Gait Assistance Required: Minimum Assistance Distance (Feet) (feet) 12 Assistive Devices Assistive Device Gait Belt Front Wheeled Walker M8 OT- IP Objective Assessments Start: 01/17/18 17:12 Freq: Status: Active Protocol: Document 01/18/18 11:29 ADH (Rec: 01/18/18 12:48 ADH [id number]) OT Gross Range of Motion Upper Extremity Range of Motion Assessment Within Functional Limits OT Strength Upper Extremity Strength Assessment Within Functional Limits OT- Coordination Assessment Upper Extremity Finger Tapping Test Within Functional Limits M9 OT- IP Assessment and Plan Start: 01/17/18 17:12 Freq: Status: Active Protocol: Document 01/18/18 11:29 ADH (Rec: 01/18/18 12:48 ADH [id number]) OT Summary Assessment and Plan Potential Rehabilitation Potential Good Analytic Complexity at Evaluation Low Summary OT Impairments Pain Functional Cognition Functional Mobility Progress Towards Goals Slow Progress due to Pain Assessment Summary Pt with slow recovery from back surgery, most severely limited by high pain medicine tolerance. Post op day 2 pt continues to limit OOB activity and functional mobility r/t pain control despite premedication and FREIGHT RATE ANALYST. Once up pt able to ambulate within room with FWW and min A of 1, increasingly flexed posture needing cues to straighten legs and walk erect . Pt with poor d/c plan, with limited insight into current abilities, current progress, and safety awareness. Pt not at baseline, nor is she able to access her home (as the access is reported) at this time. Recommend SNF d/t pt's increased need for A for all functional mobility and self- care at this time. Goals Dressing Goal Contact Guard Assistance Toileting Goal Standby Assistance Treatment Plan Other Treatment Recommendations and Next lb dressing, toileting and Treatment Focus functional transfers Discharge Recommendations OT Discharge Recommendations SNF Rehab
[2018-01-18 15:36] LABS: Appearance Urine UA CLEAR; Bilirubin Urine UA NEGATIVE (NEGATIVE); Color Urine UA YELLOW; Glucose Urine UA NEGATIVE (Normal); Ketones Urine UA TRACE (NEGATIVE); Leukocyte Esterase Urine UA TRACE (NEGATIVE); Nitrite Urine UA Negative (Negative); Occult Blood Urine UA TRACE-INTACT (Negative); Protein Urine UA 1+ (Negative); Urobilinogen Urine UA 0.2 E.U./dL (0.2)
[2018-01-18 15:42] LABS: Bacteria Urine Few (2-10); RBC Urine 1-5/HPF (0-5/HPF); Squamous Epithelial Cell Urine 0-1 /HPF; WBC Urine 1-5/HPF (0-5/HPF)
[2018-01-18 15:43] LABS: Hyaline Casts Urine 10-30/LPF
[2018-01-18 15:44] LABS: Culture Indicated Urine Specimen Cultured
--- NOTE | 2018-01-18 15:57 | PC.NURSE ---
Ortho: SI'm doing much better today. Has been up and amb, in the chair. Following her lami precautions but does need to be cued. Ingram out and pt concerned about infection and ua was obtained and sent to lab per protocol. No nausea today or itching. 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 Will make MD aware. Sat up in chair and able to consume meals. Given IS and instructed in use. Cont w/poc.
--- NOTE | 2018-01-18 16:23 | PT.IPTN ---
Current Diagnoses Scoliosis, unspecified (01/16/18) Spinal stenosis, lumbar region with neurogenic claudication (01/16/18) Other specified postprocedural states (01/16/18) Surgery Performed Operation Date: 01/16/18 11:15 Actual Procedures p L2-3,L3-4 Laminectomy & Instru Ant/Post Fusion w/Bone Graft,Removal Old Screws - Guy Ojeda MD Physical Therapy Treatment Note M2 PT-IP Current Condition Start: 01/17/18 12:00 Freq: NEEDED Status: Active Protocol: Document 01/17/18 15:50 MDD (Rec: 01/17/18 17:11 MDD [id number]) Physical Therapy Current Condition Current Condition Evaluation Date 01/17/18 Treatment Diagnosis L2-3, L3-4 anterior fusion, low back pain, impaired mobility Onset Date 01/16/18 Precautions Lumbar Precautions Log Roll No Twisting Limit Bending Lifting Restriction of 10 lbs Gait Belt above Incisional Area M3 PT-IP Subjective Start: 01/17/18 12:00 Freq: NEEDED Status: Active Protocol: Document 01/18/18 16:23 MDD (Rec: 01/18/18 17:01 MDD [id number]) Subjective Physical Therapy Visit Type Type Treatment Note Visit Start Time 15:53 Visit Stop Time 16:23 Total Visit Minutes 30 Number of DELIVERY STOCK CLERK Visits 0 Physical Therapy Visit Comments Patient Comments Pt is very motivated to participate this afternoon, would like to be able to get up and use the restroom on her own. Therapy Pain Assessment Pain When Pain Assessed At Rest Pain Present Pain Present Pain Reported Location Groin Intensity 7 Scale Used Numeric (1 - 10) Description Aching Pain Behaviors Facial Grimacing M4 PT-IP Mobility and Gait Start: 01/17/18 12:00 Freq: NEEDED Status: Active Protocol: Document 01/17/18 15:50 MDD (Rec: 01/17/18 17:11 MDD [id number]) PT-Bed Mobility Assessment Rolling Type of Rolling Log Rolling Roll to Right Level of Assist Standby Assistance Supine to Sit Supine to Sit Standby Assistance Head of Bed Elevated Sit to Supine Sit to Supine Standby Assistance Head of Bed Elevated Scooting Scooting to Edge of Bed Standby Assistance PT-Transfer Assessment Sit to and From Stand Sit to and from Stand Standby Assistance Equipment Transfer Assistive Device Gait Belt Front Wheeled Walker Orthotic/Prosthetic Devices or Brace: No Transfers Transfer Destination Bed Transfer Ability Level of Assist Standby Assistance Contact Guard Assistance Gait Assessment Gait Gait Assistance Required: Contact Guard Assist Distance (Feet) (feet) 20 Able to Maintain Weight Bearing Status Yes During Gait Assistive Devices Assistive Device Gait Belt Front Wheeled Walker Orthotic/Prosthetic Devices or Brace: No Gait Deviations General Gait Pattern Within Normal Limits Antalgic PT-Balance Assessment Sitting Balance and Reactions Static Sitting Balance Ability Normal Dynamic Sitting Balance Ability Normal Standing Balance and Reactions Static Standing Balance Ability Normal M5 PT-IP Objective Assessments Start: 01/17/18 12:00 Freq: NEEDED Status: Active Protocol: Document 01/17/18 15:50 MDD (Rec: 01/17/18 17:11 MDD [id number]) Orientation Orientation/Cognition Level of Alertness Lethargic Orientation Name Age Birthday Month Date Year Day of Week Place Situation Language Function Ability No Deficits Noted Safety Awareness Understands Safety Issues Memory Description No Deficits Noted Gross Range of Motion Upper Extremity ROM Assessment Within Functional Limits Lower Extremity ROM Assessment Within Functional Limits Strength Lower Extremity Strength Assessment Within Functional Limits Coordination Assessment Gross Coordination Gross Coordination WNL Sensation Assessment Sensation Gross Sensation Right LE Impaired Left LE Impaired Light Touch Impaired Sensation Description Numbness Tingling Comments Sensation Comments 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 Today reports mild tingling/numb sensation up to distal knee B. Muscle Tone Muscle Tone WNL Yes M6 PT-IP Treatment Start: 01/17/18 12:00 Freq: NEEDED Status: Active Protocol: Document 01/18/18 16:23 MDD (Rec: 01/18/18 17:01 MDD [id number]) Physical Therapy Treatment Education Education Provided Precautions Safety Other Treatments Other Treatment Performed Therapeutic activities - balance exercises in standing including feet together x 30 seconds w/out UE support, eyes closed x 30s, alternate arm reaching in front x 10 each, scapular retraction in standing without UE support x 10, sit to stands with emphasis on exhaling during stand and activating core. Gait training: Pt ambulated 70 feet x 2 with CGA to SBA. Requires cueing to maintain proper posture, decrease reliance on UE's. M7 PT-IP Assessment and Plan Start: 01/17/18 12:00 Freq: NEEDED Status: Active Protocol: Document 01/18/18 16:23 MDD (Rec: 01/18/18 17:01 MDD [email or web address]) PT Summary Assessment and Plan Potential Rehabilitation Potential Good Status of Condition at Evaluation Stable Summary Impairments Pain ROM Transfers Gait Activity Tolerance Progress Towards Goals Progressing Toward Goals Assessment Summary Improved progress this day with better activity tolerance and gait distances. Continues to require SBA for safety with transfers due to attached lines. Goals Bed Mobility Goal Standby Assistance Transfer Goal Independent Gait Goal Independent Gait Distance 50 feet on level ground with least restrictive AD Other Goals Ascend/descend 14 steps with L handrail with SBA Days to Meet Goals 2 Frequency of Treatment Frequency Of Treatment Twice a Day Treatment Plan Physical Therapy Treatment Plan Bed Mobility Training Transfer Training Gait Training Therapeutic Exercise Post Op Education Discharge Planning Recommendations To Nursing Amount of Assist Needed Standby Assistance 1 Person Assist Discharge Recommendations PT Discharge Recommendations Home Home with Assistance Other Discharge Recommendations Consider d/c to stepmother's home, or somewhere she is better able to access home Equipment Needed for Home Before front wheeled walker Discharge
[2018-01-18] MEDS: hydrOXYzine pamoate 25 MG CAPSULE PO (20:09)
--- NOTE | 2018-01-18 20:50 | PC.NURSE ---
Pt reports pain with movement to iv site in right wrist. Slight erythema at site. IV fluids and pain meds are infusing without difficulty. Offered to restart pt's iv and pt declined. Reports will inform this abstract writer if becomes more uncomfortable. Pt reports anticipates transitioning to oral meds 01/19 and iv will not be needed. Applied warm blanket to site.
[2018-01-18] MEDS: TIOTROPIUM BROMIDE 18 MCG INHALER INH (21:03)
[2018-01-18] MEDS: ALBUTEROL HFA 60 PUFF/8 GM INH INH (21:03)
[2018-01-18] MEDS: LORATADINE 10 MG TABLET PO (21:21)
[2018-01-18] MEDS: dilTIAZem CD 120 MG CAP PO (21:22)
[2018-01-18] MEDS: dilTIAZem CD 180 MG CAP PO (21:22)
[2018-01-18] MEDS: MELOXICAM 7.5 MG TABLET 15 MG PO (21:23)
[2018-01-18] MEDS: SENNOSIDES 8.6 MG TABLET 17.2 MG PO (21:24)
[2018-01-18] MEDS: TRAZODONE 50 MG TABLET 25 MG PO (21:25)
[2018-01-18] MEDS: LORazepam 1 MG TABLET 2 MG PO (21:27)
--- NOTE | 2018-01-18 22:13 | PC.NURSE ---
Pt reports iv to right wrist continues to be tender. Unable to draw blood, but can flush easily. Pt now agrees to restart and this was accomplished by Germain.R. R.N. Resumed iv fluids and [employer] consultant as ordered.
[2018-01-19] VITALS (8 sets, daily range): BP systolic 110–146; BP diastolic 57–79; PULSE 80–90; RESP 15–18; TEMP 36.9–37.6; O2SAT 91–96
[2018-01-19] MEDS: METHOCARBAMOL 500 MG TABLET 1500 MG PO ×3 (00:07→14:32)
[2018-01-19] MEDS: hydrOXYzine pamoate 25 MG CAPSULE PO ×4 (04:46→21:18)
[2018-01-19] MEDS: SODIUM CHLORIDE 0.9% 500 ML 21 ML IV (05:52)
[2018-01-19] MEDS: HYDROMORPHONE PCA 6 MG/30 ML PCA.VIAL IV (06:12)
--- NOTE | 2018-01-19 07:45 | PM.PNPO.1 ---
Subjective Date Patient Seen: 01/19/18 Time Patient Seen: 07:46 Interval history: POD #3 status post L2-3, L3-4 XLIF with hardware removal and laminectomies with Dr. Ojeda. She is still using her NAILING MACHINE OPERATOR. She has been up and ambulating with physical therapy. Her family worked on creating steps where she had a ladder. No difficulty urinating. Exam Vital Signs (past 8 hours): - 01/19/18 00:24 01/19/18 05:07 Temperature 98.5 F 98.9 F Pulse Rate 86 80 Respiratory Rate 16 18 Blood Pressure 146/76 H 110/57 L Pulse Oximetry 93 96 Oxygen Delivery Method Room Air Oxygen Flow Rate 0 Narrative Exam Narrative: Patient lying in bed in no acute distress. She is able to actively dorsiflex and plantar flex. Calves are soft, compressible, nontender bilaterally. Pulses are symmetrical. Objective Labs Result Diagrams: 01/17/18 06:20 Labs: Laboratory Results - last 24 hr 01/18/18 14:45 Urine Color Yellow Urine Appearance Clear Urine pH 5.0 Ur Specific [place] 1.020 Urine Protein 1+ H Urine Glucose (UA) Negative Urine Ketones Trace H Urine Occult Blood Trace-intact Urine Nitrate Negative Urine Bilirubin Negative Urine Urobilinogen 0.2 Ur Leukocyte Esterase Trace H Urine RBC 1-5/hpf Urine WBC 1-5/hpf Ur Squamous Epith Cells 0-1 /hpf Urine Bacteria Few (2-10) H Hyaline Casts 10-30/lpf Ur Culture Indicated? Specimen cultured Micro UA Comment .. Assessment & Plan Post-op Postoperative Procedures Operation Date: 01/16/18 11:15 Actual Procedures Side Surgeon p L2-3,L3-4 Laminectomy & Instru Ant/Post Fusion w/Bone Graft,Removal Old Screws Guy Ojeda MD POD #3 status post L2-3, L3-4 XLIF with hardware removal and laminectomies with Dr. Ojeda. Will DC NAILING MACHINE OPERATOR and switched to oral Dilaudid. Continue ambulating with physical therapy. If pain agent is able to ambulate safely with adequate pain control she could possibly go home today or tomorrow. Time Spent With Patient less than 15 minutes Quality VTE Deep Vein Thrombosis/Pulmonary Embolism Present on Admission: No
--- NOTE | 2018-01-19 07:50 | P.PN_ITS ---
Subjective Date Patient Seen: 01/19/18 Time Patient Seen: 07:46 Interval history: POD #3 status post L2-3, L3-4 XLIF with hardware removal and laminectomies with Dr. Ojeda. She is still using her DIGITAL WATCH ASSEMBLER. She has been up and ambulating with physical therapy. Her family worked on creating steps where she had a ladder. No difficulty urinating. Exam Vital Signs (past 8 hours): - 01/19/18 00:24 01/19/18 05:07 Temperature 98.5 F 98.9 F Pulse Rate 86 80 Respiratory Rate 16 18 Blood Pressure 146/76 H 110/57 L Pulse Oximetry 93 96 Oxygen Delivery Method Room Air Oxygen Flow Rate 0 Narrative Exam Narrative: Patient lying in bed in no acute distress. She is able to actively dorsiflex and plantar flex. Calves are soft, compressible, nontender bilaterally. Pulses are symmetrical. Objective Labs Result Diagrams: 01/17/18 06:20 Labs: Laboratory Results - last 24 hr 01/18/18 14:45 Urine Color Yellow Urine Appearance Clear Urine pH 5.0 Ur Specific [place] 1.020 Urine Protein 1+ H Urine Glucose (UA) Negative Urine Ketones Trace H Urine Occult Blood Trace-intact Urine Nitrate Negative Urine Bilirubin Negative Urine Urobilinogen 0.2 Ur Leukocyte Esterase Trace H Urine RBC 1-5/hpf Urine WBC 1-5/hpf Ur Squamous Epith Cells 0-1 /hpf Urine Bacteria Few (2-10) H Hyaline Casts 10-30/lpf Ur Culture Indicated? Specimen cultured Micro UA Comment .. Assessment & Plan Post-op Postoperative Procedures Operation Date: 01/16/18 11:15 Actual Procedures Side Surgeon p L2-3,L3-4 Laminectomy & Instru Ant/Post Fusion w/Bone Graft,Removal Old Screws Guy Ojeda MD POD #3 status post L2-3, L3-4 XLIF with hardware removal and laminectomies with Dr. Ojeda. Will DC DIGITAL WATCH ASSEMBLER and switched to oral Dilaudid. Continue ambulating with physical therapy. If pain agent is able to ambulate safely with adequate pain control she could possibly go home today or tomorrow. Time Spent With Patient less than 15 minutes Quality VTE Deep Vein Thrombosis/Pulmonary Embolism Present on Admission: No
[2018-01-19] MEDS: DULOXETINE 30 MG CAPSULE 60 MG PO ×2 (08:21→21:15)
[2018-01-19] MEDS: HYDROMORPHONE 4 MG TABLET PO ×4 (08:21→21:17)
[2018-01-19] MEDS: DOCUSATE 100 MG CAPSULE PO ×2 (08:21→19:58)
[2018-01-19] MEDS: NICOTINE 1 EACH PO ×5 (08:21→21:18)
[2018-01-19] MEDS: PREGABALIN 75 MG CAPSULE PO ×2 (08:22→21:16)
--- NOTE | 2018-01-19 10:28 | PT.IPTN ---
Current Diagnoses Scoliosis, unspecified (01/16/18) Spinal stenosis, lumbar region with neurogenic claudication (01/16/18) Other specified postprocedural states (01/16/18) Surgery Performed Operation Date: 01/16/18 11:15 Actual Procedures p L2-3,L3-4 Laminectomy & Instru Ant/Post Fusion w/Bone Graft,Removal Old Screws - Guy Ojeda MD Physical Therapy Treatment Note M2 PT-IP Current Condition Start: 01/17/18 12:00 Freq: NEEDED Status: Active Protocol: Document 01/17/18 15:50 MDD (Rec: 01/17/18 17:11 MDD [id number]) Physical Therapy Current Condition Current Condition Evaluation Date 01/17/18 Treatment Diagnosis L2-3, L3-4 anterior fusion, low back pain, impaired mobility Onset Date 01/16/18 Precautions Lumbar Precautions Log Roll No Twisting Limit Bending Lifting Restriction of 10 lbs Gait Belt above Incisional Area M3 PT-IP Subjective Start: 01/17/18 12:00 Freq: NEEDED Status: Active Protocol: Document 01/19/18 10:42 MDD (Rec: 01/19/18 10:48 MDD [email or web address]) Subjective Physical Therapy Visit Type Type Treatment Note Visit Start Time 10:05 Visit Stop Time 10:28 Total Visit Minutes 23 Number of ACADEMIC RECORDS SPECIALIST Visits 0 Physical Therapy Visit Comments Patient Comments Pt reports high pain levels. Agreeable to participate but grouchy. Pt also reports family has built stairs up to her home (2 steps with B handrails). Still has 14 steps with single handrail to get up to shower in home ( without hot water), but does have access to shower at stepmother's home (accessible) . Therapy Pain Assessment Pain When Pain Assessed During Mobility Pain Present Pain Present Pain Reported Location Groin Intensity 8 Scale Used Numeric (1 - 10) Description Aching Shooting Spasm Pain Behaviors Guarding Holding Area Pain Management Techniques Timing of Activity with Medications M4 PT-IP Mobility and Gait Start: 01/17/18 12:00 Freq: NEEDED Status: Active Protocol: Document 01/17/18 15:50 MDD (Rec: 01/17/18 17:11 MDD [id number]) PT-Bed Mobility Assessment Rolling Type of Rolling Log Rolling Roll to Right Level of Assist Standby Assistance Supine to Sit Supine to Sit Standby Assistance Head of Bed Elevated Sit to Supine Sit to Supine Standby Assistance Head of Bed Elevated Scooting Scooting to Edge of Bed Standby Assistance PT-Transfer Assessment Sit to and From Stand Sit to and from Stand Standby Assistance Equipment Transfer Assistive Device Gait Belt Front Wheeled Walker Orthotic/Prosthetic Devices or Brace: No Transfers Transfer Destination Bed Transfer Ability Level of Assist Standby Assistance Contact Guard Assistance Gait Assessment Gait Gait Assistance Required: Contact Guard Assist Distance (Feet) (feet) 20 Able to Maintain Weight Bearing Status Yes During Gait Assistive Devices Assistive Device Gait Belt Front Wheeled Walker Orthotic/Prosthetic Devices or Brace: No Gait Deviations General Gait Pattern Within Normal Limits Antalgic PT-Balance Assessment Sitting Balance and Reactions Static Sitting Balance Ability Normal Dynamic Sitting Balance Ability Normal Standing Balance and Reactions Static Standing Balance Ability Normal M5 PT-IP Objective Assessments Start: 01/17/18 12:00 Freq: NEEDED Status: Active Protocol: Document 01/17/18 15:50 MDD (Rec: 01/17/18 17:11 MDD [id number]) Orientation Orientation/Cognition Level of Alertness Lethargic Orientation Name Age Birthday Month Date Year Day of Week Place Situation Language Function Ability No Deficits Noted Safety Awareness Understands Safety Issues Memory Description No Deficits Noted Gross Range of Motion Upper Extremity ROM Assessment Within Functional Limits Lower Extremity ROM Assessment Within Functional Limits Strength Lower Extremity Strength Assessment Within Functional Limits Coordination Assessment Gross Coordination Gross Coordination WNL Sensation Assessment Sensation Gross Sensation Right LE Impaired Left LE Impaired Light Touch Impaired Sensation Description Numbness Tingling Comments Sensation Comments 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 Today reports mild tingling/numb sensation up to distal knee B. Muscle Tone Muscle Tone WNL Yes M6 PT-IP Treatment Start: 01/17/18 12:00 Freq: NEEDED Status: Active Protocol: Document 01/19/18 10:42 MDD (Rec: 01/19/18 10:48 MDD [id number]) Physical Therapy Treatment Education Education Provided Precautions Weight Bearing Status Post-Op Packet Safety Other Treatments Other Treatment Performed Pt ambulated 40 feet with SBA using front wheeled walker. Ascended/descended 3 steps with B handrails x2. Cues for slow pace, step to pattern. Ambulated 45 feet into bathroom and performed toileting independently. Continued practice with log roll into bed x2 (cues for proper hand placement, coordinating movement with breathing) and out of bed x 1. M7 PT-IP Assessment and Plan Start: 01/17/18 12:00 Freq: NEEDED Status: Active Protocol: Document 01/19/18 10:42 MDD (Rec: 01/19/18 10:48 MDD [id number]) PT Summary Assessment and Plan Potential Rehabilitation Potential Good Status of Condition at Evaluation Stable Summary Impairments Pain ROM Bed Mobility Activity Tolerance Progress Towards Goals Slow Progress due to Pain Assessment Summary Continuing to demonstrate progress, able to ascend/ descend 6 stairs total with SBA. Requires assist for proper log roll and assist with legs when fatigued (at end of session) to get back into bed. Goals Bed Mobility Goal Independent Transfer Goal Independent Other Goals Ascend/descend at least 3 steps with B handrail and 14 steps with single handrail L. Days to Meet Goals 1 Frequency of Treatment Frequency Of Treatment Twice a Day Treatment Plan Physical Therapy Treatment Plan Bed Mobility Training Transfer Training Gait Training Therapeutic Exercise Post Op Education Discharge Planning Recommendations To Nursing Amount of Assist Needed Standby Assistance 1 Person Assist Discharge Recommendations PT Discharge Recommendations Home Home with Assistance Equipment Needed for Home Before front wheeled walker Discharge
[2018-01-19] MEDS: ONDANSETRON 4 MG/2 ML INJ IV (14:32)
--- NOTE | 2018-01-19 15:57 | OT.IP.TRT ---
Current Diagnoses Scoliosis, unspecified (01/16/18) Spinal stenosis, lumbar region with neurogenic claudication (01/16/18) Other specified postprocedural states (01/16/18) Surgery Performed Operation Date: 01/16/18 11:15 Actual Procedures p L2-3,L3-4 Laminectomy & Instru Ant/Post Fusion w/Bone Graft,Removal Old Screws - Guy Ojeda MD Occupational Therapy Treatment Note M2 OT-IP Current Condition Start: 01/17/18 17:12 Freq: Status: Active Protocol: Document 01/19/18 15:47 ADH (Rec: 01/19/18 15:57 ADH [id number]) Occupational Therapy Current Condition Current Condition Evaluation Date 01/18/18 Treatment Diagnosis laminectomy Diagnosis Onset Date 01/16/18 Post Operative Precautions Lumbar Precautions Log Roll No Twisting Limit Bending Lifting Restriction of 10 lbs Gait Belt above Incisional Area M3 OT- IP Subjective and Pain Start: 01/17/18 17:12 Freq: Status: Active Protocol: Document 01/19/18 15:47 ADH (Rec: 01/19/18 15:57 ADH [id number]) OT- Subjective Occupational Therapy Visit Type Type Treatment Note Visit Start Time 01:42 Visit Stop Time 04:02 Total Visit Minutes 34 Notes Pt seen b.i.d. for OT services focusing on badLS in prep for d/c home. Pt premedicated at both sessions, but continued to perseverate on pain. OT Pain Assessment Pain When Pain Assessed At Rest Pain Present Pain Present Pain Reported Location Groin Intensity 5 Scale Used Numeric (1 - 10) Pain Behaviors Restlessness Wincing Management Techniques Distraction Modification of Treatment Re-positioning Timing of Activity with Medications M4 OT- IP ADL's Start: 01/17/18 17:12 Freq: Status: Active Protocol: Document 01/19/18 15:47 ADH (Rec: 01/19/18 15:57 ADH [id number]) OT BMG-Hqnh-Dypeatk General Evaluation Self-Feeding Ability Independent OT ADL-Grooming General Evaluation Grooming Ability Independent OT ADL-Oral Care General Eval Oral Care Ability Independent OT ADL-Dressing General Eval Upper Body Dressing Ability Independent Lower Body Dressing Ability Standby Assistance Areas Needing Assistance Retrieving/Set-up of Clothing Comments OT Dressing Comments Pt able to complete TB dressing sitting/standing at EOB. Pt needed demo to use long handled dressing equipment. Pt able to use equipment appropriately and maintain back precautions throughout. OT ADL-Toileting General Evaluation Toileting Ability Standby Assistance Devices Toileting Assistive Devices Grab Bars M6 OT- IP Functional Cognition Start: 01/17/18 17:12 Freq: Status: Active Protocol: Document 01/19/18 15:47 ADH (Rec: 01/19/18 15:57 ADH [id number]) Cognitive Factors Limiting Selfcare Function Cognitive Ability Level of Alertness Alert Attention Span Ability Capable of Focused Attention Capable of Sustained Attention Ability to Follow Commands Able to Follow Multi-Step Commands Cognitive Comments Cognitive Assessment Comments Improved adherence to back precautions, improved initiation of log roll etc. M7 OT- IP Mobility and Balance Start: 01/17/18 17:12 Freq: Status: Active Protocol: Document 01/19/18 15:47 ADH (Rec: 01/19/18 15:57 ADH [id number]) OT- Bed Mobility Assessment Rolling Type of Rolling Log Rolling Level of Assistance Standby Assistance Supine to Sit Supine to Sit Assist Standby Assistance Sit to Supine Sit to Supine Assist Standby Assistance Scooting Scooting to Edge of Bed Standby Assistance Scooting Up and Down in Bed Standby Assistance OT-Transfer Assessment Sit to and From Stand Sit to and from Stand Standby Assistance Technique Transfer Destination Bed Chair Toilet Transfer Technique Stand Step Pivot Devices Transfer Assistive Devices Gait Belt Front Wheeled Walker OT- Gait Assessment Gait Gait Assistance Required: Standby Assistance Distance (Feet) (feet) 55 Assistive Devices Assistive Device Gait Belt Front Wheeled Walker M8 OT- IP Objective Assessments Start: 01/17/18 17:12 Freq: Status: Active Protocol: Document 01/18/18 11:29 ADH (Rec: 01/18/18 12:48 ADH [id number]) OT Gross Range of Motion Upper Extremity Range of Motion Assessment Within Functional Limits OT Strength Upper Extremity Strength Assessment Within Functional Limits OT- Coordination Assessment Upper Extremity Finger Tapping Test Within Functional Limits M9 OT- IP Assessment and Plan Start: 01/17/18 17:12 Freq: Status: Active Protocol: Document 01/19/18 15:47 ADH (Rec: 01/19/18 15:57 ADH [id number]) OT Summary Assessment and Plan Potential Rehabilitation Potential Excellent Analytic Complexity at Evaluation Low Summary Progress Towards Goals Progressing Toward Goals Slow Progress due to Pain Assessment Summary Pt with improved mobility and self-care this session, increased demo of safety awareness, back precaution adherence. Pt progressing well , with increased likelihood of meeting d/c goals. Goals Toileting Goal Independent Toilet Transfer Goal Independent Treatment Plan OT Treatment Plan ADL Training Functional Mobility Patient/Family Education Discharge Planning Discharge Recommendations OT Discharge Recommendations Home with Assistance
--- NOTE | 2018-01-19 16:30 | PT.IPTN ---
Current Diagnoses Scoliosis, unspecified (01/16/18) Spinal stenosis, lumbar region with neurogenic claudication (01/16/18) Other specified postprocedural states (01/16/18) Surgery Performed Operation Date: 01/16/18 11:15 Actual Procedures p L2-3,L3-4 Laminectomy & Instru Ant/Post Fusion w/Bone Graft,Removal Old Screws - Guy Ojeda MD Physical Therapy Treatment Note M2 PT-IP Current Condition Start: 01/17/18 12:00 Freq: NEEDED Status: Active Protocol: Document 01/17/18 15:50 MDD (Rec: 01/17/18 17:11 MDD [id number]) Physical Therapy Current Condition Current Condition Evaluation Date 01/17/18 Treatment Diagnosis L2-3, L3-4 anterior fusion, low back pain, impaired mobility Onset Date 01/16/18 Precautions Lumbar Precautions Log Roll No Twisting Limit Bending Lifting Restriction of 10 lbs Gait Belt above Incisional Area M3 PT-IP Subjective Start: 01/17/18 12:00 Freq: NEEDED Status: Active Protocol: Document 01/19/18 16:28 MDD (Rec: 01/19/18 16:30 MDD [id number]) Subjective Physical Therapy Visit Type Type Patient Refusal Visit Start Time 14:22 Visit Stop Time 14:25 Total Visit Minutes 3 Notes Pt refused PT treatment in the afternoon. She had just finished up with OT and requested for PT to try again later. Complaining of too much pain at 8/10 pain Goals Bed Mobility Goal Independent Transfer Goal Independent Other Goals Ascend/descend at least 3 steps with B handrail and 14 steps with single handrail L. Days to Meet Goals 1 Frequency of Treatment Frequency Of Treatment Twice a Day Treatment Plan Physical Therapy Treatment Plan Bed Mobility Training Transfer Training Gait Training Therapeutic Exercise Post Op Education Discharge Planning Recommendations To Nursing Amount of Assist Needed Standby Assistance 1 Person Assist Discharge Recommendations PT Discharge Recommendations Home Home with Assistance Equipment Needed for Home Before front wheeled walker Discharge
[2018-01-19] MEDS: LORATADINE 10 MG TABLET PO (17:13)
[2018-01-19] MEDS: PROMETHAZINE 25 MG TABLET PO (17:58)
[2018-01-19] MEDS: SENNOSIDES 8.6 MG TABLET 17.2 MG PO (19:58)
[2018-01-19] MEDS: LORazepam 1 MG TABLET 2 MG PO (21:15)
[2018-01-19] MEDS: dilTIAZem CD 120 MG CAP PO (21:15)
[2018-01-19] MEDS: dilTIAZem CD 180 MG CAP PO (21:15)
[2018-01-19] MEDS: TIOTROPIUM BROMIDE 18 MCG INHALER INH (21:16)
[2018-01-19] MEDS: MELOXICAM 7.5 MG TABLET 15 MG PO (21:16)
[2018-01-19] MEDS: SODIUM CHLORIDE 0.9% FLUSH 10 ML IV (21:17)
[2018-01-19] MEDS: TRAZODONE 50 MG TABLET 25 MG PO (21:18)
[2018-01-20] MEDS: METHOCARBAMOL 500 MG TABLET 1500 MG PO ×4 (00:23→23:57)
[2018-01-20] MEDS: HYDROMORPHONE 4 MG TABLET PO ×5 (00:23→14:47)
[2018-01-20] MEDS: NICOTINE 1 EACH PO ×6 (00:38→23:57)
[2018-01-20] MEDS: hydrOXYzine pamoate 25 MG CAPSULE PO (04:17)
[2018-01-20 04:28] VITALS: BP 135/74; PULSE 70; RESP 16; TEMP 37.3; O2SAT 92
[2018-01-20] MEDS: PREGABALIN 75 MG CAPSULE PO ×2 (07:49→20:24)
[2018-01-20] MEDS: DOCUSATE 100 MG CAPSULE PO ×2 (07:50→20:25)
[2018-01-20] MEDS: DULOXETINE 30 MG CAPSULE 60 MG PO ×2 (07:50→20:26)
[2018-01-20] MEDS: PROMETHAZINE 25 MG TABLET PO (07:52)
[2018-01-20 08:00] VITALS: BP 124/78; PULSE 78; RESP 16; TEMP 36.9; O2SAT 93
--- NOTE | 2018-01-20 09:26 | PT.IPTN ---
Current Diagnoses Scoliosis, unspecified (01/16/18) Spinal stenosis, lumbar region with neurogenic claudication (01/16/18) Other specified postprocedural states (01/16/18) Surgery Performed Operation Date: 01/16/18 11:15 Actual Procedures p L2-3,L3-4 Laminectomy & Instru Ant/Post Fusion w/Bone Graft,Removal Old Screws - Guy Ojeda MD Physical Therapy Treatment Note M2 PT-IP Current Condition Start: 01/17/18 12:00 Freq: NEEDED Status: Active Protocol: Document 01/20/18 09:26 [facility] (Rec: 01/20/18 09:32 [facility] [id number]) Physical Therapy Current Condition Current Condition Evaluation Date 01/17/18 Treatment Diagnosis L2-3, L3-4 anterior fusion, low back pain, impaired mobility Onset Date 01/16/18 Precautions Lumbar Precautions Log Roll No Twisting Limit Bending Lifting Restriction of 10 lbs Gait Belt above Incisional Area M3 PT-IP Subjective Start: 01/17/18 12:00 Freq: NEEDED Status: Active Protocol: Document 01/20/18 09:26 [facility] (Rec: 01/20/18 09:32 [facility] [id number]) Subjective Physical Therapy Visit Type Type Treatment Note Visit Start Time 09:00 Visit Stop Time 09:26 Total Visit Minutes 26 Number of CREEL HAND Visits 0 Physical Therapy Visit Comments Patient Comments Pt reports she does not feel like she can go home today. She has lots of help @ home. Therapy Pain Assessment Location Back Intensity 6 Scale Used Numeric (1 - 10) M4 PT-IP Mobility and Gait Start: 01/17/18 12:00 Freq: NEEDED Status: Active Protocol: Document 01/20/18 09:26 [facility] (Rec: 01/20/18 09:32 [facility] [id number]) PT-Bed Mobility Assessment Rolling Type of Rolling Log Rolling Level of Assist Standby Assistance Supine to Sit Supine to Sit Standby Assistance Bedrails Sit to Supine Sit to Supine Minimal Assistance Scooting Scooting to Edge of Bed Independent PT-Transfer Assessment Sit to and From Stand Sit to and from Stand Independent Equipment Transfer Assistive Device Gait Belt Front Wheeled Walker Transfers Transfer Destination Bed Toilet Transfer Technique Stand Step Pivot Transfer Ability Level of Assist Standby Assistance Comments Mobility Comments Gait to BR, pt urinated 300 cc urine output (on/off toilet modified indep. with rail R). Refused to sit in chair. Gait Assessment Gait Gait Assistance Required: Standby Assistance Distance (Feet) (feet) 100 Assistive Devices Assistive Device Gait Belt Front Wheeled Walker Gait Deviations General Gait Pattern Antalgic Decreased Stride Length Factors Limiting Gait Function Factors Limiting Gait Function Decreased Activity Tolerance Decreased Strength Pain Poor Safety Awareness M5 PT-IP Objective Assessments Start: 01/17/18 12:00 Freq: NEEDED Status: Active Protocol: Document 01/17/18 15:50 [facility] (Rec: 01/17/18 17:11 [facility] [id number]) Orientation Orientation/Cognition Level of Alertness Lethargic Orientation Name Age Birthday Month Date Year Day of Week Place Situation Language Function Ability No Deficits Noted Safety Awareness Understands Safety Issues Memory Description No Deficits Noted Gross Range of Motion Upper Extremity ROM Assessment Within Functional Limits Lower Extremity ROM Assessment Within Functional Limits Strength Lower Extremity Strength Assessment Within Functional Limits Coordination Assessment Gross Coordination Gross Coordination WNL Sensation Assessment Sensation Gross Sensation Right LE Impaired Left LE Impaired Light Touch Impaired Sensation Description Numbness Tingling Comments Sensation Comments 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 Today reports mild tingling/numb sensation up to distal knee B. Muscle Tone Muscle Tone WNL Yes M6 PT-IP Treatment Start: 01/17/18 12:00 Freq: NEEDED Status: Active Protocol: Document 01/19/18 10:42 [facility] (Rec: 01/19/18 10:48 [facility] [id number]) Physical Therapy Treatment Education Education Provided Precautions Weight Bearing Status Post-Op Packet Safety Other Treatments Other Treatment Performed Pt ambulated 40 feet with SBA using front wheeled walker. Ascended/descended 3 steps with B handrails x2. Cues for slow pace, step to pattern. Ambulated 45 feet into bathroom and performed toileting independently. Continued practice with log roll into bed x2 (cues for proper hand placement, coordinating movement with breathing) and out of bed x 1. M7 PT-IP Assessment and Plan Start: 01/17/18 12:00 Freq: NEEDED Status: Active Protocol: Document 01/20/18 09:26 [facility] (Rec: 01/20/18 09:32 [facility] [id number]) PT Summary Assessment and Plan Summary Impairments Pain Strength Bed Mobility Transfers Gait Activity Tolerance Assessment Summary POD #4. Pt able to get out of bed with SBA, but does use rails to assist. Pt fatigued with gait, but no increase in pain after mobilization. She refused to sit in the chair, encouraged pt to use IS. Pt has performed stairs with PT ( yesterday) and likely to be able to d/c home when medically stable. Goals Bed Mobility Goal Independent Transfer Goal Independent Other Goals Ascend/descend at least 3 steps with B handrail and 14 steps with single handrail L. Days to Meet Goals 1 Frequency of Treatment Frequency Of Treatment Twice a Day Treatment Plan Physical Therapy Treatment Plan Bed Mobility Training Transfer Training Gait Training Therapeutic Exercise Post Op Education Discharge Planning Recommendations To Nursing Amount of Assist Needed Standby Assistance 1 Person Assist Discharge Recommendations PT Discharge Recommendations Home Home with Assistance Equipment Needed for Home Before front wheeled walker Discharge
--- NOTE | 2018-01-20 10:55 | PM.PNPO.1 ---
Subjective Date Patient Seen: 01/20/18 Time Patient Seen: 08:33 Interval history: POD #4 status post L2-3, L3-4 XLIF with hardware removal and laminectomies with Dr. Ojeda. 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 Receiving oral dilaudid 4mg. Also receiving Vistaril 25 mg, promethazine for nausea and methocarbamol for muscle spasms. Has been able to ambulate with PT but still complaining of a lot of pain in legs and back. The issue with having to climb a ladder to get into her house has been rectified. Her family build her steps to get into her house. Exam Vital Signs (past 8 hours): - 01/20/18 04:28 01/20/18 08:00 Temperature 99.1 F 98.5 F Pulse Rate 70 78 Respiratory Rate 16 16 Blood Pressure 135/74 H 124/78 H Pulse Oximetry 92 93 Oxygen Delivery Method Nasal Cannula Oxygen Flow Rate 0 Narrative Exam Narrative: Patient in bed. Appears comfortable. 5/5 in BLE strength. Bilateral calves soft and nontender. Back dressing clean dry and intact. Alert and orient x3. Objective Labs Result Diagrams: 01/17/18 06:20 Assessment & Plan Post-op Postoperative Procedures Operation Date: 01/16/18 11:15 Actual Procedures Side Surgeon p L2-3,L3-4 Laminectomy & Instru Ant/Post Fusion w/Bone Graft,Removal Old Screws Guy Ojeda MD POD #4 status post L2-3, L3-4 XLIF with hardware removal and laminectomies with Dr. Ojeda. Continue pain medication as needed. Continue physical therapy. Discussion and plan with patient is that she is to go home tomorrow. She is ambulating well enough that she can go home. She could not go home today because her family members were busy and no one is able to pick her up from the hospital. She no longer has to climb a ladder to get into her house and has stairs now. We will write discharge prescriptions for Dilaudid 4 mg, promethazine 25 mg and methocarbamol [id number]. Time Spent With Patient less than 15 minutes Quality VTE Deep Vein Thrombosis/Pulmonary Embolism Present on Admission: No
--- NOTE | 2018-01-20 11:06 | P.PN_ITS ---
Subjective Date Patient Seen: 01/20/18 Time Patient Seen: 08:33 Interval history: POD #4 status post L2-3, L3-4 XLIF with hardware removal and laminectomies with Dr. Ojeda. 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 Receiving oral dilaudid 4mg. Also receiving Vistaril 25 mg, promethazine for nausea and methocarbamol for muscle spasms. Has been able to ambulate with PT but still complaining of a lot of pain in legs and back. The issue with having to climb a ladder to get into her house has been rectified. Her family build her steps to get into her house. Exam Vital Signs (past 8 hours): - 01/20/18 04:28 01/20/18 08:00 Temperature 99.1 F 98.5 F Pulse Rate 70 78 Respiratory Rate 16 16 Blood Pressure 135/74 H 124/78 H Pulse Oximetry 92 93 Oxygen Delivery Method Nasal Cannula Oxygen Flow Rate 0 Narrative Exam Narrative: Patient in bed. Appears comfortable. 5/5 in BLE strength. Bilateral calves soft and nontender. Back dressing clean dry and intact. Alert and orient x3. Objective Labs Result Diagrams: 01/17/18 06:20 Assessment & Plan Post-op Postoperative Procedures Operation Date: 01/16/18 11:15 Actual Procedures Side Surgeon p L2-3,L3-4 Laminectomy & Instru Ant/Post Fusion w/Bone Graft,Removal Old Screws Guy Ojeda MD POD #4 status post L2-3, L3-4 XLIF with hardware removal and laminectomies with Dr. Ojeda. Continue pain medication as needed. Continue physical therapy. Discussion and plan with patient is that she is to go home tomorrow. She is ambulating well enough that she can go home. She could not go home today because her family members were busy and no one is able to pick her up from the hospital. She no longer has to climb a ladder to get into her house and has stairs now. We will write discharge prescriptions for Dilaudid 4 mg, promethazine 25 mg and methocarbamol [id number]. Time Spent With Patient less than 15 minutes Quality VTE Deep Vein Thrombosis/Pulmonary Embolism Present on Admission: No
[2018-01-20 12:00] VITALS: BP 120/69; PULSE 70; RESP 16; TEMP 36.6; O2SAT 93
--- NOTE | 2018-01-20 12:18 | OT.IP.TRT ---
Current Diagnoses Scoliosis, unspecified (01/16/18) Spinal stenosis, lumbar region with neurogenic claudication (01/16/18) Other specified postprocedural states (01/16/18) Surgery Performed Operation Date: 01/16/18 11:15 Actual Procedures p L2-3,L3-4 Laminectomy & Instru Ant/Post Fusion w/Bone Graft,Removal Old Screws - Guy Ojeda MD Occupational Therapy Treatment Note M2 OT-IP Current Condition Start: 01/17/18 17:12 Freq: Status: Active Protocol: Document 01/20/18 12:11 [facility] (Rec: 01/20/18 12:18 [facility] [id number]) Occupational Therapy Current Condition Current Condition Evaluation Date 01/18/18 Treatment Diagnosis laminectomy Diagnosis Onset Date 01/16/18 Post Operative Precautions Lumbar Precautions Log Roll No Twisting Limit Bending Lifting Restriction of 10 lbs Gait Belt above Incisional Area M3 OT- IP Subjective and Pain Start: 01/17/18 17:12 Freq: Status: Active Protocol: Document 01/20/18 12:11 [facility] (Rec: 01/20/18 12:18 [facility] [id number]) OT- Subjective Occupational Therapy Visit Type Type Treatment Note Visit Start Time 11:50 Visit Stop Time 12:05 Total Visit Minutes 15 OT Pain Assessment Pain When Pain Assessed At Rest Pain Present Pain Present Pain Reported Location Groin Intensity 3 Scale Used Numeric (1 - 10) Management Techniques Apply Heat Distraction Modification of Treatment Re-positioning M4 OT- IP ADL's Start: 01/17/18 17:12 Freq: Status: Active Protocol: Document 01/20/18 12:11 [facility] (Rec: 01/20/18 12:18 [facility] [id number]) OT [id number] General Evaluation Self-Feeding Ability Independent OT ADL-Grooming General Evaluation Grooming Ability Independent OT ADL-Oral Care General Eval Oral Care Ability Independent OT ADL-Dressing General Eval Upper Body Dressing Ability Independent Lower Body Dressing Ability Standby Assistance OT ADL-Toileting General Evaluation Toileting Ability Standby Assistance M6 OT- IP Functional Cognition Start: 01/17/18 17:12 Freq: Status: Active Protocol: Document 01/19/18 15:47 [facility] (Rec: 01/19/18 15:57 [facility] [id number]) Cognitive Factors Limiting Selfcare Function Cognitive Ability Level of Alertness Alert Attention Span Ability Capable of Focused Attention Capable of Sustained Attention Ability to Follow Commands Able to Follow Multi-Step Commands Cognitive Comments Cognitive Assessment Comments Improved adherence to back precautions, improved initiation of log roll etc. M7 OT- IP Mobility and Balance Start: 01/17/18 17:12 Freq: Status: Active Protocol: Document 01/19/18 15:47 [facility] (Rec: 01/19/18 15:57 [facility] [id number]) OT- Bed Mobility Assessment Rolling Type of Rolling Log Rolling Level of Assistance Standby Assistance Supine to Sit Supine to Sit Assist Standby Assistance Sit to Supine Sit to Supine Assist Standby Assistance Scooting Scooting to Edge of Bed Standby Assistance Scooting Up and Down in Bed Standby Assistance OT-Transfer Assessment Sit to and From Stand Sit to and from Stand Standby Assistance Technique Transfer Destination Bed Chair Toilet Transfer Technique Stand Step Pivot Devices Transfer Assistive Devices Gait Belt Front Wheeled Walker OT- Gait Assessment Gait Gait Assistance Required: Standby Assistance Distance (Feet) (feet) 55 Assistive Devices Assistive Device Gait Belt Front Wheeled Walker M8 OT- IP Objective Assessments Start: 01/17/18 17:12 Freq: Status: Active Protocol: Document 01/18/18 11:29 [facility] (Rec: 01/18/18 12:48 [facility] [id number]) OT Gross Range of Motion Upper Extremity Range of Motion Assessment Within Functional Limits OT Strength Upper Extremity Strength Assessment Within Functional Limits OT- Coordination Assessment Upper Extremity Finger Tapping Test Within Functional Limits M9 OT- IP Assessment and Plan Start: 01/17/18 17:12 Freq: Status: Active Protocol: Document 01/20/18 12:11 [facility] (Rec: 01/20/18 12:18 [facility] [id number]) OT Summary Assessment and Plan Potential Rehabilitation Potential Excellent Analytic Complexity at Evaluation Low Summary Progress Towards Goals Progressing Toward Goals Safe For Discharge Goals Met Assessment Summary Pt continues to progress with functional mobility and self- care, now SBA for all self- care here at hospital (except bathing) with FWW. Pt with supportive family at home, no existing barriers to d/c. Pt reported surprise/frustration that she would be discharged while I still have pain. Educated pt on realistic pain management expectations. Pt appropriate for d/c home, no further OT needs noted. Discharge Recommendations OT Discharge Recommendations Home with Assistance
--- NOTE | 2018-01-20 14:38 | PC.NURSE ---
Day shift: Pt worked with PT today and ambulated in halls. She tolerated well. Calm and cooperative w/ care. Pt reports back pain 02/16/ Medicated per MAR and Pt is able to sleep for a couple hours. Voiding well. No BM today. Call light in reach. Bed alarm on
--- NOTE | 2018-01-20 15:15 | CM.DPC ---
DCP/continued: Reviewed chart. Spoke with Ortho/SIMONA Saravia she reports that patient will most likely be medically stable for discharge on 01-21. Met with patient explained CM/SW role. Patient reports that she is unsure she will be ready for discharge tomorrow secondary to her pain? SIMONA/Rani updated and reports that d/c plan will most likely not change. White board updated to include d/c date of 01-21-18. Spoke with Moreno from therapy and he reports that patient did very well with therapy today. Current recommendation is home. P: Home when stable. Ortho indicates d/c scheduled for tomorrow 01-21-18. Patient aware and agreeable but hesitant pending pain management. MIGUELITO Williamson
[2018-01-20 15:20] VITALS: BP 124/77; PULSE 73; RESP 17; TEMP 37.2
--- NOTE | 2018-01-20 15:31 | PC.NURSE ---
Patient is A&O x3, pleasant and cooperative w/ staff and is able to make needs known when nec. Patient is resting in bed reports pain is 7/10 at this time due to muscle spasms. Tx given per emar orders. POD #4 Drg. to surgical site is dry and intact w/ scant shadow drainage to lumbar back drg. CMS intact, PP +, legs are puffy but no edema is present, puffy appearance patient reports is baseline. Pat. refusing repos. for comfort or ice at this time. Aware to use call light w/ needs. Call light w/in reach, bed in low pos. alarm active.
--- NOTE | 2018-01-20 16:28 | PT.IPTN ---
Current Diagnoses Scoliosis, unspecified (01/16/18) Spinal stenosis, lumbar region with neurogenic claudication (01/16/18) Other specified postprocedural states (01/16/18) Surgery Performed Operation Date: 01/16/18 11:15 Actual Procedures p L2-3,L3-4 Laminectomy & Instru Ant/Post Fusion w/Bone Graft,Removal Old Screws - Guy Ojeda MD Physical Therapy Treatment Note M2 PT-IP Current Condition Start: 01/17/18 12:00 Freq: NEEDED Status: Active Protocol: Document 01/20/18 16:27 [facility] (Rec: 01/20/18 16:28 [facility] [id number]) Physical Therapy Current Condition Current Condition Evaluation Date 01/17/18 Treatment Diagnosis L2-3, L3-4 anterior fusion, low back pain, impaired mobility Onset Date 01/16/18 Precautions Lumbar Precautions Log Roll No Twisting Limit Bending Lifting Restriction of 10 lbs Gait Belt above Incisional Area M3 PT-IP Subjective Start: 01/17/18 12:00 Freq: NEEDED Status: Active Protocol: Document 01/20/18 16:27 [facility] (Rec: 01/20/18 16:28 [facility] [id number]) Subjective Physical Therapy Visit Type Type Patient Refusal Visit Start Time 16:46 Visit Stop Time 16:47 Total Visit Minutes 1 Notes Pt sleeping, woken up to attempt PT but pt refused at this time. She states she walked too far today with OT . Will attempt tomorrow, expect to size pt for FWW tomorrow in a.m. Goals Bed Mobility Goal Independent Transfer Goal Independent Other Goals Ascend/descend at least 3 steps with B handrail and 14 steps with single handrail L. Days to Meet Goals 1 Frequency of Treatment Frequency Of Treatment Twice a Day Treatment Plan Physical Therapy Treatment Plan Bed Mobility Training Transfer Training Gait Training Therapeutic Exercise Post Op Education Discharge Planning Recommendations To Nursing Amount of Assist Needed Standby Assistance 1 Person Assist Discharge Recommendations PT Discharge Recommendations Home Home with Assistance Equipment Needed for Home Before front wheeled walker Discharge
[2018-01-20] MEDS: HYDROCODONE/ACET 10/325 TABLET 2 TAB PO ×2 (18:12→23:56)
[2018-01-20 19:35] VITALS: BP 133/92; PULSE 102; RESP 17; TEMP 36.6; O2SAT 96
[2018-01-20] MEDS: TIOTROPIUM BROMIDE 18 MCG INHALER INH (20:22)
[2018-01-20] MEDS: LORazepam 1 MG TABLET 2 MG PO (20:22)
[2018-01-20] MEDS: SENNOSIDES 8.6 MG TABLET 17.2 MG PO (20:23)
[2018-01-20] MEDS: MELOXICAM 7.5 MG TABLET 15 MG PO (20:24)
[2018-01-20] MEDS: dilTIAZem CD 180 MG CAP PO (20:25)
[2018-01-20] MEDS: dilTIAZem CD 120 MG CAP PO (20:25)
[2018-01-20] MEDS: TRAZODONE 50 MG TABLET 25 MG PO (20:25)
[2018-01-20] MEDS: SODIUM CHLORIDE 0.9% FLUSH 10 ML IV (20:26)
[2018-01-20 23:50] VITALS: BP 104/68; PULSE 90; RESP 17; TEMP 37; O2SAT 95
[2018-01-21] MEDS: HYDROMORPHONE 4 MG TABLET PO ×2 (02:44→11:49)
[2018-01-21 02:51] VITALS: BP 109/61; PULSE 70; RESP 16; TEMP 36.6; O2SAT 95
[2018-01-21 07:00] VITALS: BP 128/77; PULSE 81; RESP 16; TEMP 36.6; O2SAT 96
--- NOTE | 2018-01-21 07:39 | CM.DPC ---
DCP Discharge Home Per MD, pt is medically stable to d/c home today with family assist and no identified barriers to discharge. Per PT, recommending safe d/c home with family assist and FWW, orders have been placed. Family built stair access into their house that is in construction and pt no longer has to manage a ladder to get inside the house. Plan: Patient to d/c home today via family POV and assist and FWW. No SW needs at this time, please refer if indicated. Amara Marie MSW
[2018-01-21] MEDS: PREGABALIN 75 MG CAPSULE PO (07:56)
[2018-01-21] MEDS: DOCUSATE 100 MG CAPSULE PO (07:56)
[2018-01-21] MEDS: DULOXETINE 30 MG CAPSULE 60 MG PO (07:56)
[2018-01-21] MEDS: HYDROCODONE/ACET 10/325 TABLET 2 TAB PO (07:58)
[2018-01-21] MEDS: SODIUM CHLORIDE 0.9% FLUSH 10 ML IV (07:59)
[2018-01-21] MEDS: NICOTINE 1 EACH PO (08:09)
--- NOTE | 2018-01-21 09:20 | PT.IPTN ---
Current Diagnoses Scoliosis, unspecified (01/16/18) Spinal stenosis, lumbar region with neurogenic claudication (01/16/18) Other specified postprocedural states (01/16/18) Surgery Performed Operation Date: 01/16/18 11:15 Actual Procedures p L2-3,L3-4 Laminectomy & Instru Ant/Post Fusion w/Bone Graft,Removal Old Screws - Guy Ojeda MD Physical Therapy Treatment Note M2 PT-IP Current Condition Start: 01/17/18 12:00 Freq: NEEDED Status: Active Protocol: Document 01/21/18 09:20 [facility] (Rec: 01/21/18 11:02 [facility] [id number]) Physical Therapy Current Condition Current Condition Evaluation Date 01/17/18 Treatment Diagnosis L2-3, L3-4 anterior fusion, low back pain, impaired mobility Onset Date 01/16/18 Precautions Lumbar Precautions Log Roll No Twisting Limit Bending Lifting Restriction of 10 lbs Gait Belt above Incisional Area M3 PT-IP Subjective Start: 01/17/18 12:00 Freq: NEEDED Status: Active Protocol: Document 01/21/18 09:20 [facility] (Rec: 01/21/18 11:02 [facility] [id number]) Subjective Physical Therapy Visit Type Type Patient Refusal Visit Start Time 09:15 Visit Stop Time 09:20 Notes Pt refused PT intervention this a.m., wanted to rest. Physical Therapy Visit Comments Patient Comments pt wants to rest. M6 PT-IP Treatment Start: 01/17/18 12:00 Freq: NEEDED Status: Active Protocol: Document 01/21/18 09:20 [facility] (Rec: 01/21/18 11:02 [facility] [id number]) Physical Therapy Treatment Equipment Issued Equipment Type and Company FWW sized and issued to pt for home use M7 PT-IP Assessment and Plan Start: 01/17/18 12:00 Freq: NEEDED Status: Active Protocol: Document 01/21/18 09:20 [facility] (Rec: 01/21/18 11:02 [facility] [id number]) PT Summary Assessment and Plan Summary Progress Towards Goals Safe For Discharge Assessment Summary Pt has been cleared by PT to return home with assistance when medically stable. Pt now has personal FWW issued.
--- NOTE | 2018-01-21 11:00 | P.PN_ITS ---
Exam Vital Signs (past 8 hours): - 01/21/18 07:00 Temperature 97.9 F Pulse Rate 81 Respiratory Rate 16 Blood Pressure 128/77 H Pulse Oximetry 96 Oxygen Delivery Method Nasal Cannula Oxygen Flow Rate 0 Objective Labs Result Diagrams: 01/17/18 06:20 Assessment & Plan Plan: Assessment/Plan Narrative: Patient is admitted after surgery. Patient has been stable and progressing with physical therapy. Patient is neurovascularly intact on exam. Patient has no signs or symptoms of DVT. Patient's dressing is clean dry and intact. Patient will be discharged today to home. Her pain medication was switched to [place] since she responded better to it. Quality VTE Deep Vein Thrombosis/Pulmonary Embolism Present on Admission: No
[2018-01-21] MEDS: METHOCARBAMOL 500 MG TABLET 1500 MG PO (11:49)
--- NOTE | 2018-01-21 12:06 | PC.NURSE ---
Day shift: Pt left unit at approx 1200 with friend. She went to private vehicle in w/ [employer]. She has all personal belongings, MD whatley, and Estefany thomas. Paperwork signed and all questions answered. Dressings CDI.
--- NOTE | 2018-01-21 12:09 | SUR.OPER ---
Day shift: Pt also had packet for home health (manilla envelope).
--- NOTE | 2018-01-29 14:47 | PM.DS.1 ---
History of Present Illness Date Patient Seen: 01/21/18 Time Patient Seen: 11:00 Chief complaint: laminectomies fusion w/bone graft see notes/codes Narrative: Details of the patient's H&P can be found in the electronic chart. Discharge Providers Date of admission: 01/16/18 08:42 Primary care physician: Erik Degroot MD Consults: 01/16/18 19:44 Consult to Occupational Therapy Evaluate & Treat Comment: Physician Instructions: Evaluate and treat Consult to Physical Therapy Evaluate & Treat Comment: Physician Instructions: Evaluate and Treat 01/18/18 09:07 Consult to Discharge Planning Routine Comment: 01/18/18 15:23 Consult to Home Health Routine Comment: aminectomies and instrumented anterior/posterior f Reason For Exam: FWW for home use Discharge provider: Rani Mcdaniel PA-C Summary Discharge Diagnosis: Lumbar stenosis with radiculopathy Scoliosis Hospital Course: Patient was admitted and taken to the operating room where she had a L2-3, L3-4 XLIF with hardware removal and laminectomies by Dr. Ojeda. She recovered well and was transferred to the floor for further case. First few days post operatively, she was having issues with pain control and was placed on a CYTOLOGY LABORATORY MANAGER for pain control. Post op day 3, she was taken off the CYTOLOGY LABORATORY MANAGER and transitioned to oral dilaudid. She also had an issue with having to climb a ladder to get into her house the first few days but her family build her steps to get into her house by post op day 4. Post op day 5 she her pain medication was switched back to [place] and she was discharged home. She will f/u in office in 10-14 days post op. Status at Discharge Cognitive/behavioral status at discharge: Alert and orient x3 Functional status at discharge: uses cane/walker Overall status at discharge: patient is progressing back to baseline Time Spent with Patient Less than 30 minutes Exam Vital Signs (past 8 hours): Oxygen Delivery Method Nasal Cannula Oxygen Flow Rate 0 Narrative Exam Narrative: Patient is neurovascularly intact on exam. Patient has no signs or symptoms of DVT. Patient's dressing is clean dry and intact. Objective Labs Result Diagrams: 01/17/18 06:20 Discharge Plan Discharge Plan Patient Disposition: Home, Self-Care Discharge Med Rec/Prescriptions Prescriptions: New methocarbamol 500 mg Tablet 1,500 mg PO TID PRN (Reason: Muscle Spasm) Qty: 60 RF: 0 hydromorphone 4 mg Tablet 4 mg PO Q4H PRN (Reason: Pain, Severe (7-10)) Qty: 60 RF: 0 hydrocodone-acetaminophen [[place]] 10-325 mg tablet 1 tab PO Q4-6H PRN (Reason: pain) Qty: 60 RF: 0 Continue trazodone 50 mg Tablet 25 mg PO BEDTIME RF: 0 meloxicam [Mobic] 15 mg Tablet 15 mg PO BEDTIME RF: 0 diltiazem HCl 300 mg Capsule,Extended Release 24 Hr 300 mg PO BEDTIME RF: 0 fexofenadine 180 mg Tablet 180 mg PO QPM RF: 0 pseudoephedrine HCl [Sudafed] 30 mg Tablet 30 mg PO Q4-6H PRN (Reason: Allergies) RF: 0 ranitidine HCl 150 mg Capsule 150 mg PO DAILY PRN (Reason: gerd) RF: 0 lorazepam 1 mg Tablet 2 mg PO BEDTIME RF: 0 albuterol sulfate 90 mcg/actuation Hfa Aerosol Inhaler 2 puff INHALATION Q4-6H PRN (Reason: Asthma) RF: 0 tiotropium bromide [Spiriva with HandiHaler] 18 mcg Capsule, W/Inhalation Device 2 inh INHALATION BEDTIME RF: 0 duloxetine 60 mg Capsule,Delayed Release(Dr/Ec) 60 mg PO BID RF: 0 pregabalin [Lyrica] 75 mg Capsule 75 mg PO BID RF: 0 nicotine (polacrilex) [Nicorette] 2 mg Gum 1 - 2 piece of gum PO Q1H RF: 0 promethazine 25 mg Tablet 25 mg PO Q6H PRN (Reason: Nausea) Qty: 40 RF: 0 Discontinued methocarbamol 500 mg Tablet 3 tab PO BEDTIME RF: 0 hydrocodone-acetaminophen 10-325 mg Tablet 1.5 tab PO TID PRN (Reason: pain) RF: 0 Follow up/Referrals: Guy Ojeda MD [Physician] - (Follow-up in 10-14 days as scheduled time and date. Contact the office with any issues or concerns.) Provider Discharge Instructions Diet: Diet as Tolerated Activity: Weight bear as tolerated with walker/cane. No bending lifting or twisting. Cold/Heat Therapy: Apply ice as needed for inflammation and swelling. Wound Care Report to your healthcare provider any signs of infection, such as:: chills, fever, night sweats, increased pain and unusual drainage Dressing: Keep dressing clean dry and intact. Visit Report/Discharge Packet Instructions: DI for Laminectomy, Hydrocodone Combination Products, Hydromorphone, Methocarbamol Visit Report Forms: Stroke Signs & Symptoms Discharge Data Primary Care Provider: Demarcus Degroot Attending Provider: Guy Ojeda Admit Date/Time: 01/16/18 08:42 Discharges patient from system. Discharge Date/Time: 01/21/18 12:09 Quality VTE Deep Vein Thrombosis/Pulmonary Embolism Present on Admission: No
== END 2018-01-21 12:09 | disposition home or self-care (01) | DRG 455 ==
PROVIDERS: Admitting Provider Orthopaedic Surgery; PCP Family Medicine; Visit Provider Orthopaedic Surgery
PROC: 0SG00A0 Fusion of Lumbar Vertebral Joint with Interbody Fusion Device, Anterior Approach, Anterior Column, Open Approach (ICD-10-PCS; CPT 22558; principal; 2018-01-16 11:15)
DX: M48.062 Spinal stenosis, lumbar region with neurogenic claudication (principal); M41.9 Scoliosis, unspecified; Z98.1 Arthrodesis status; I10 Essential (primary) hypertension; M79.7 Fibromyalgia; F32.9 Major depressive disorder, single episode, unspecified; J44.9 Chronic obstructive pulmonary disease, unspecified; Z87.891 Personal history of nicotine dependence
CPT/HCPCS: 36415; 36592; 72100; 76001; 81001; 85014; 85018; 87086; 94640; 94760; 97116; 97161; 97165; 97530; 97535; C1776; J0330; J0690; J2060; J2175; J2250; J2300; J2405; J2704; J3010

== ENCOUNTER → 2018-08-06 09:08 | Outpatient (CLI) | payer OTHER, SELFPAY ==
[2018-01-16 19:46] VITALS: BMI 25.2
--- NOTE | 2018-08-06 | DI.NM.S_ITS ---
PROCEDURE: NM BONE SPECT RADIOPHARMACEUTICAL: 26.1 mCi Tc-99m MDP IV. INDICATIONS: LUMBAR STENOSIS WITH NEUROGENIC CLAUDICATION TECHNIQUE: Delayed bone scintigrams were obtained of the region of interest 3-4 hours after intravenous administration of Tc-99m MDP. Additional tomographic (SPECT) imaging was performed and displayed in axial, coronal, and sagittal planes. COMPARISON: [facility], CR, SPINE THORACIC 2VW, 03/02/2016, 14:12. [facility], CR, XR LUMBAR SPINE 2 OR 3 VIEWS, 01/30/2018, 15:06. [facility], CR, XR LUMBAR SPINE 2 OR 3 VIEWS, 04/04/2018, 14:14. [facility], CT, CT LUMBAR SPINE WITHOUT CONTRAST, 05/19/2018, 11:48. FINDINGS: There is mild/moderate scoliosis in the thoracolumbar spine. There are foci of increased uptake in lower thoracic spine at T8-T9, T9-T10, T10-T11 and T11-T12, with distribution consistent with degenerative disc and facet disease. There is however increased uptake in lumbar spine, correlating with CT finding of postsurgical changes. IMPRESSION: Degenerative and postsurgical changes in lower thoracic and lumbar spine. Dictated by: Mina Hirsch M.D. on 08/07/2018 at 17:39 Approved by: Mina Hirsch M.D. on 08/07/2018 at 18:43
== END ==
PROVIDERS: PCP Physician Assistant Medical; Visit Provider Orthopaedic Surgery
DX: M48.062 Spinal stenosis, lumbar region with neurogenic claudication (principal); M51.35 Other intervertebral disc degeneration, thoracolumbar region; M41.85 Other forms of scoliosis, thoracolumbar region
CPT/HCPCS: 78320; A9503

== ENCOUNTER 2019-02-05 17:07 | Emergency (ER) | payer OTHER, SELFPAY ==
[2018-01-16 19:46] VITALS: BMI 25.2
[2019-02-05 17:10] VITALS: PULSE 111; RESP 16; TEMP 36.3; O2SAT 97; BMI 19.8
--- NOTE | 2019-02-05 17:16 | DI.RAD.S_ITS ---
PROCEDURE: XR CHEST 1V INDICATIONS: palpitations TECHNIQUE: One view of the chest was acquired. COMPARISON: None. FINDINGS: Surgical changes and devices: Surgical clips in the left breast. Lungs and pleura: Lungs are clear. No pleural effusions or pneumothorax. Mediastinum: Mediastinal contours appear normal. Heart size is normal. Bones and chest wall: No suspicious bony lesions. Overlying soft tissues appear unremarkable. IMPRESSION: No acute cardiopulmonary disease. Dictated by: Mina Hirsch M.D. on 02/05/2019 at 18:07 Approved by: Mina Hirsch M.D. on 02/05/2019 at 18:07
[2019-02-05] MEDS: SODIUM CHLORIDE 0.9% 1,000 ML 150 ML IV (17:38)
[2019-02-05 17:40] LABS: Add Manual Diff / Slide Review NO; Basophils Absolute Auto 100 /uL (0-100); Basophils Percent Auto 1.1 % (0-2); Eosinophils Absolute Auto 100 /uL (0-450); Eosinophils Percent Auto 2.2 % (2-4); Hematocrit 42.7 % (36-46); Hemoglobin 14.4 g/dL (12.0-16.0); Lymphocytes Absolute Auto 2200 /uL (1100-4500); Lymphocytes Percent Auto 32.5 % (25-40); Mean Corpuscular HGB Conc 33.6 % (30-36); Mean Corpuscular Hemoglobin 32.1 PG (26-34); Mean Corpuscular Volume 95.5 fL (80-100); Monocytes Absolute Auto 500 /uL (0-900); Monocytes Percent Auto 8.2 % (3-14); Neutrophils Absolute Auto 3700 /uL (1500-7000); Platelet Count 302 X10^3/uL (150-400); Red Blood Cell Count 4.48 X10^6/uL (4.0-5.2); Red Cell Distribution Width 13.3 % (11.6-14.8); White Blood Cell Count 6.6 X10^3/uL (4.5-11.0)
--- NOTE | 2019-02-05 17:43 | ED.ARRPALP ---
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 She denies any known history of atrial fibrillation or a flutter. She denies any chest pain or shortness of breath and has no palpitations. She states that she feels in her normal state of health and is unsure when her heart rate became abnormal. She is a former smoker MD complaint: irregular heart beat Onset (ago): unknown Associated symptoms: denies other symptoms Related Data Home Medications Medication Instructions Recorded Confirmed albuterol sulfate 2 puff INHALATION Q4-6H PRN 01/15/18 02/05/19 diltiazem HCl 300 mg PO BEDTIME 01/15/18 02/05/19 duloxetine 60 mg PO BID 01/15/18 02/05/19 fexofenadine 180 mg PO QPM 01/15/18 01/15/18 lorazepam 2 mg PO BEDTIME 01/15/18 01/16/18 meloxicam [Mobic] 15 mg PO BEDTIME 01/15/18 01/15/18 nicotine (polacrilex) [Nicorette] 1 - 2 piece of gum PO Q1H 01/15/18 01/16/18 pregabalin [Lyrica] 75 mg PO BID 01/15/18 01/16/18 pseudoephedrine HCl [Sudafed] 30 mg PO Q4-6H PRN 01/15/18 01/15/18 ranitidine HCl 150 mg PO DAILY PRN 01/15/18 02/05/19 tiotropium bromide [Spiriva with 2 inh INHALATION BEDTIME 01/15/18 01/15/18 HandiHaler] trazodone 25 - 50 mg PO BEDTIME 01/15/18 02/05/19 alprazolam 0.5 mg PO DAILY 02/05/19 02/05/19 clobetasol 1 applic TOPICAL DIRECTED 02/05/19 02/05/19 dicyclomine 10 mg PO TID 02/05/19 02/05/19 estradiol 10 mcg VAGINAL QWEEK 02/05/19 02/05/19 fluticasone propionate 1 spray INTRANASAL DIRECTED 02/05/19 02/05/19 hydrocodone-acetaminophen 1 tab PO Q4-6H PRN 02/05/19 02/05/19 lisinopril 10 mg PO DAILY 02/05/19 02/05/19 montelukast 10 mg PO DAILY 02/05/19 02/05/19 naloxone [Narcan] 02/05/19 omeprazole 20 mg PO BID 02/05/19 02/05/19 Previous Rx's Medication Instructions Recorded hydromorphone 4 mg PO Q4H PRN #60 tab 01/20/18 methocarbamol 1,500 mg PO TID PRN #60 tab 01/20/18 promethazine 25 mg PO Q6H PRN #40 tab 01/20/18 apixaban [Eliquis] See Rx Instructions .ROUTE 02/05/19 .COMPLEX #30 tab Allergies Allergy/AdvReac Type Severity Reaction Status Date / Time etodolac Allergy Severe Hives Verified 02/05/19 17:15 morphine Allergy Severe Hives Verified 02/05/19 17:15 nifedipine [From Procardia] Allergy Severe Hives Verified 02/05/19 17:15 adhesive tape AdvReac Intermediate Raised red Verified 02/05/19 17:15 area if left too long bupropion [From Wellbutrin] AdvReac Intermediate Keeps me Verified 02/05/19 17:15 awake olanzapine [From Zyprexa] AdvReac Intermediate Weird Verified 02/05/19 17:15 dreams propranolol AdvReac Intermediate Weird Verified 02/05/19 17:15 dreams Review of Systems Constitutional Denies chills, Denies fever(s), Denies lethargy and Denies weakness Eyes Denies change in vision, Denies eye discharge, Denies irritation and Denies loss of vision ENT Ears, Nose, Mouth, and Throat: Denies change in voice, Denies neck pain and Denies sore throat Cardiovascular Denies chest pain, Denies irregular heart rhythm, Denies lightheadedness, Denies palpitations, Denies dyspnea, Denies dyspnea on exertion and Denies orthopnea Respiratory Denies cough, Denies dyspnea, Denies dyspnea on exertion and Denies wheezing Gastrointestinal Gastrointestinal: Reports abdominal pain, Denies change in bowel habits, Denies diarrhea, Denies nausea and Denies vomiting Genitourinary Denies hematuria, Denies flank pain, Denies urinary incontinence and Denies urinary urgency Musculoskeletal Reports back pain and Denies neck pain Integumentary/Breasts Denies pruritus, Denies erythema, Denies rash and Denies wounds Neurologic Denies confusion, Denies loss of vision and Denies weakness Psychiatric Denies anxiety, Denies confusion, Denies depression, Denies homicidal ideation and Denies suicidal ideation Endocrine Denies palpitations Hematologic/Lymphatic Denies easy bruising Allergic/Immunologic Denies wheezing [facility] Medical History Anxiety (Acute) Asthma (Acute) Bug bite (Acute) COPD (chronic obstructive pulmonary disease) (Acute) Cancer of left breast (Acute) Cellulitis of right lower extremity (Acute) Chronic pain (Acute) Constipation (Acute) DDD (degenerative disc disease), cervical (Acute) DDD (degenerative disc disease), lumbar (Acute) Depression (Acute) Fibromyalgia (Acute) GERD (gastroesophageal reflux disease) (Acute) HTN (hypertension) (Acute) History of hysterectomy (Acute) Melanoma (Acute) Neuropathy (Acute) Panic attacks (Acute) Pneumonia (Acute) Pneumothorax (Acute) Raynaud's phenomenon (Acute) SCC (squamous cell carcinoma) (Acute) Stomach ulcer (Acute) Urinary tract infection (Acute) Surgical History History of section (Acute) History of lumbar fusion (Acute) History of reconstruction of left breast (Acute) History of removal of Port-a-Cath (Acute) Hx of LASIK (Acute) Hx of left mastectomy (Acute) Hx of tonsillectomy (Acute) Social History household members: family and children Smoking Status: Former smoker alcohol intake: current Social History household members: family and children Smoking Status: Former smoker alcohol intake: current Exam Narrative Exam Narrative: GENERAL: 63-year-old female appears stated age, in no obvious or significant distress HEAD: Atraumatic. Normocephalic. No temporal or scalp tenderness. EYES: Pupils equal round and reactive. Extraocular motions intact. No scleral icterus. No injection or drainage. ENT: Nose without bleeding, purulent drainage or septal hematoma. Throat without erythema, tonsillar hypertrophy or exudate. Uvula midline. Airway patent. NECK: Trachea midline. No JVD or lymphadenopathy. Supple, nontender, no meningeal signs. CARDIOVASCULAR: Tachycardic and irregular RESPIRATORY: Clear to auscultation. Breath sounds equal bilaterally. No wheezes, rales, or rhonchi. GASTROINTESTINAL: Abdomen soft, non-tender, nondistended. No hepato-splenomegaly, or palpable masses. No guarding. EXTREMITIES: No clubbing, cyanosis, or edema. No joint tenderness, effusion, or edema noted. BACK: Nontender without deformity or crepitance. No flank tenderness. NEURO: AOx3. SKIN: No rash or erythema. Initial Vital Signs Initial Vital Signs: Vital Signs Temperature 97.3 F L 02/05/19 17:10 Pulse Rate 111 H 02/05/19 17:10 Respiratory Rate 16 02/05/19 17:10 Pulse Oximetry 97 02/05/19 17:10 Scores CHADS-VASc Congestive heart failure: no Hypertension: yes Age 75 years or older: no Diabetes mellitus: no Stroke, TIA, or TE: no Vascular disease: no Age 65 to 74 years: no Sex category (female): Female CHADS-VASc Score: 2 Course Orders Ordered: ED Orders 02/05/19 17:15 EKG-12 Lead Stat 02/05/19 17:16 XR chest 1V Stat 02/05/19 17:30 Basic Metabolic Panel Stat Complete Blood Count AUTO DIFF Stat Magnesium Stat Thyroid Stimulating Hormone Stat Troponin & CK Cardiac Panel Stat Sodium Chloride (Normal Saline 0.9%) 1,000 mls @ 150 mls/hr IV CONT CARLOS Last Admin: 02/05/19 17:38 Dose: 150 mls/hr Discontinued Medications Diltiazem HCl (Cardizem) 10 mg IV NOW ONE Stop: 02/05/19 17:44 Last Admin: 02/05/19 18:07 Dose: 10 mg Consultations Consultation #1: call to cardiology. Anticoagulation, rate control, follow up with PCP, echo Vital Signs - 8 hr 02/05/19 17:10 02/05/19 18:12 02/05/19 18:27 Temperature 97.3 F L Pulse Rate 111 H 115 H 89 Respiratory Rate 16 16 11 L Blood Pressure [Right Arm] 127/91 H 127/91 H Pulse Oximetry 97 98 MDM - Arrhythmia/Palpitations Lab Data Result diagrams: 02/05/19 17:30 02/05/19 17:30 Lab Results 02/05/19 02/05/19 02/05/19 Range/Units 17:30 17:30 17:30 WBC 6.6 (4.5-11.0) X10^3/uL RBC 4.48 (4.0-5.2) X10^6/uL Hgb 14.4 (12.0-16.0) g/dL Hct 42.7 (36-46) % MCV 95.5 (80-100) fL MCH 32.1 (26-34) PG MCHC 33.6 (30-36) % RDW 13.3 (11.6-14.8) % Plt Count 302 (150-400) X10^3/uL Neut % (Auto) 56.0 (50-75) % Lymph % (Auto) 32.5 (25-40) % [place] % (Auto) 8.2 (3-14) % Eos % (Auto) 2.2 (2-4) % Baso % (Auto) 1.1 (0-2) % Neut # (Auto) 3700 (9527-8856) /uL Lymph # (Auto) 2200 (4569-7240) /uL [place] # (Auto) 500 (0-900) /uL Eos # (Auto) 100 (0-450) /uL Baso # (Auto) 100 (0-100) /uL Sodium 141 (137-145) mmol/L Potassium 4.0 (3.4-5.1) mmol/L Chloride 104 (98-107) mmol/L Carbon Dioxide 24 (22-32) mmol/L BUN 16 (7-17) mg/dL Creatinine 0.70 (0.52-1.04) mg/dL Estimated GFR > 60.0 (>60) mL/min BUN/Creatinine Ratio 22.9 H (6-22) Glucose 93 (80-110) mg/dL Calcium 10.1 (8.4-10.2) mg/dL Magnesium 1.9 (1.6-2.3) mg/dL Total Creatine Kinase 68 (30-135) U/L CK-MB (CK-2) TNP CK-MB (CK-2) Rel Index TNP Troponin I < 0.012 (0.01-0.034) ng/mL TSH 0.81 (0.47-4.68) uIU/mL Urine Dip Bedside Urine Glucose Negative Bedside Urine Bilirubin - Negative Bedside Urine Ketone - Negative Urine Specific [place] 1.015 Bedside Urine Occult Blood - Negative Bedside Urine pH 6.0 Bedside Urine Protein - Negative Bedside Urine Urobilinogen - Negative Bedside Urine Nitrite - Negative Bedside Urine Leukocytes - Negative Esterase ECG Data Attestation: I personally reviewed and interpreted this ECG as follows: Prior ECG tracings: not available for review Interpretation: Atrial flutter in tachycardia alternating between a 2-1 and 3-1 without signs of other ectopy nor any ischemia such as T-wave inversions or ST segmental change. Discharge Plan Departure Patient Disposition: Home Clinical Impression: Atrial flutter Qualifiers: Atrial flutter type: typical Qualified Code(s): I48.3 - Typical atrial flutter Instructions: DI for Atrial Flutter Activity Restrictions/Additional Instructions: *You have been diagnosed with [atrial flutter] *What to do: *Take medications as directed: your blood thinner has been electronically transmitted to your pharmacy in [place] at your request *Follow up with your primary care provider in 2-3 days, call for an appointment. Let them know you were seen in the Emergency Department and that we ask that you be seen in follow up *Return to ER if you should have any new, worsening or concerning symptoms, such as [chest pain, some shortness of breath, dizziness or lightheadedness or any consequences of bleeding has you will be started on an anticoagulant such as bright red blood or black stools] Prescriptions: New Eliquis 5 mg tablet See Rx Instructions .ROUTE .COMPLEX Qty: 30 RF: 0 No Action hydrocodone-acetaminophen 10-325 mg tablet 1 tab PO Q4-6H PRN (Reason: pain) RF: 0 alprazolam 0.5 mg tablet 0.5 mg PO DAILY RF: 0 lisinopril 10 mg tablet 10 mg PO DAILY RF: 0 omeprazole 20 mg capsule,delayed release(DR/EC) 20 mg PO BID RF: 0 montelukast 10 mg tablet 10 mg PO DAILY RF: 0 clobetasol 0.05 % ointment 1 applic topical DIRECTED RF: 0 fluticasone propionate 50 mcg/actuation spray,suspension 1 spray intranasal DIRECTED RF: 0 dicyclomine 10 mg capsule 10 mg PO TID RF: 0 estradiol 10 mcg tablet 10 mcg vaginal QWEEK RF: 0 Narcan 4 mg/actuation spray,non-aerosol RF: 0 trazodone 50 mg Tablet 25 - 50 mg PO BEDTIME RF: 0 meloxicam [Mobic] 15 mg Tablet 15 mg PO BEDTIME RF: 0 diltiazem HCl 300 mg Capsule,Extended Release 24 Hr 300 mg PO BEDTIME RF: 0 fexofenadine 180 mg Tablet 180 mg PO QPM RF: 0 pseudoephedrine HCl [Sudafed] 30 mg Tablet 30 mg PO Q4-6H PRN (Reason: Allergies) RF: 0 ranitidine HCl 150 mg Capsule 150 mg PO DAILY PRN (Reason: gerd) RF: 0 lorazepam 1 mg Tablet 2 mg PO BEDTIME RF: 0 albuterol sulfate 90 mcg/actuation Hfa Aerosol Inhaler 2 puff INHALATION Q4-6H PRN (Reason: Asthma) RF: 0 tiotropium bromide [Spiriva with HandiHaler] 18 mcg Capsule, W/Inhalation Device 2 inh INHALATION BEDTIME RF: 0 duloxetine 60 mg Capsule,Delayed Release(Dr/Ec) 60 mg PO BID RF: 0 pregabalin [Lyrica] 75 mg Capsule 75 mg PO BID RF: 0 nicotine (polacrilex) [Nicorette] 2 mg Gum 1 - 2 piece of gum PO Q1H RF: 0 methocarbamol 500 mg Tablet 1,500 mg PO TID PRN (Reason: Muscle Spasm) Qty: 60 RF: 0 hydromorphone 4 mg Tablet 4 mg PO Q4H PRN (Reason: Pain, Severe (7-10)) Qty: 60 RF: 0 promethazine 25 mg Tablet 25 mg PO Q6H PRN (Reason: Nausea) Qty: 40 RF: 0 Referrals: Mica Piedra PA-C [Primary Care Provider] -
[2019-02-05 17:55] LABS: BUN Creatinine Ratio 22.9 (6-22); Blood Urea Nitrogen 16 mg/dL (7-17); Calcium 10.1 mg/dL (8.4-10.2); Carbon Dioxide 24 mmol/L (22-32); Chloride 104 mmol/L (98-107); Creatine Kinase 68 U/L (30-135); Estimated Glomerular Filt Rate > 60.0 mL/min (>60); Glucose 93 mg/dL (80-110); Magnesium 1.9 mg/dL (1.6-2.3); Sodium 141 mmol/L (137-145)
[2019-02-05 17:58] LABS: HEMOLYSIS 55 (0-50)
[2019-02-05 18:06] LABS: Troponin I < 0.012 ng/mL (0.01-0.034)
[2019-02-05] MEDS: dilTIAZem 5 MG/ML SDV 10 MG IV (18:07)
[2019-02-05 18:12] VITALS: BP 127/91; PULSE 115; RESP 16
[2019-02-05 18:26] LABS: Thyroid Stimulating Hormone 0.81 uIU/mL (0.47-4.68)
[2019-02-05 18:27] VITALS: BP 127/91; PULSE 89; RESP 11; O2SAT 98
== END 2019-02-05 19:21 | disposition home or self-care (01) ==
PROVIDERS: Emergency Provider Emergency Medicine; Family Provider Physician Assistant Medical; PCP Physician Assistant Medical
DX: I48.3 Typical atrial flutter (principal)
CPT/HCPCS: 36591; 71045; 80048; 81003; 82550; 83735; 84443; 84484; 85025; 93005; 93041; 96361; 96374; 99285

== ENCOUNTER → 2020-11-25 09:21 | Outpatient (CLI) | payer OTHER, SELFPAY ==
[2018-01-16 19:46] VITALS: BMI 25.2
[2020-11-25 10:01] LABS: COVID19 -Nasal RAPID Negative (Negative)
== END ==
PROVIDERS: Family Provider Physician Assistant Medical; PCP Physician Assistant Medical; Referring Provider Internal Medicine Cardiovascular Disease; Visit Provider Internal Medicine Cardiovascular Disease
DX: Z20.822 Contact with and (suspected) exposure to COVID-19 (principal)
CPT/HCPCS: 87635; C9803

== ENCOUNTER → 2020-11-25 10:17 | Outpatient (CLI) | payer OTHER, SELFPAY ==
[2018-01-16 19:46] VITALS: BMI 25.2
--- NOTE | 2020-11-27 08:01 | PM.PFT.1 ---
Pulmonary Function Test Referral & Results Date Patient Seen: 11/25/20 Requesting provider: Sienna Mckeon Results: The spirometry demonstrates an FVC of 2.25 L which is 93% of predicted. The FEV1 was measured at 1.37 L which is 74% of predicted. The FEV1/FVC ratio was 61 which is 79% of predicted. Following the administration of bronchodilator there was no appreciable change. Lung volumes show an SVC of 2.33 L which is 100% of predicted. The diffusing capacity was measured at 8.40 L which is 51% of predicted. No hemoglobin value was provided, so no correction for potential anemia could be made, if appropriate. The maximum voluntary ventilation was reduced Interpretation: This study demonstrates perhaps very mild obstructive lung disease based on minimal reduction FEV1 although FEV1/FVC ratio is relatively preserved. There is also no evidence of benefit following bronchodilator Lung volumes are normal Diffusing capacity is moderately reduced as above, unless patient is anemic Clinical correlation suggested
== END ==
PROVIDERS: Family Provider Physician Assistant Medical; PCP Physician Assistant Medical; Referring Provider Internal Medicine Cardiovascular Disease; Visit Provider Internal Medicine Cardiovascular Disease
DX: R06.02 Shortness of breath (principal); Z20.822 Contact with and (suspected) exposure to COVID-19
CPT/HCPCS: 87635; 94060; 94726; 94729; C9803

== ENCOUNTER → 2021-01-11 14:09 | Outpatient (CLI) | payer OTHER, SELFPAY ==
[2018-01-16 19:46] VITALS: BMI 25.2
[2021-01-11 15:07] LABS: COVID19 -Nasal RAPID Negative (Negative)
== END ==
PROVIDERS: Family Provider Physician Assistant Medical; PCP Physician Assistant Medical; Visit Provider Physician Assistant
DX: Z01.812 Encounter for preprocedural laboratory examination (principal); Z20.822 Contact with and (suspected) exposure to COVID-19
CPT/HCPCS: 87635; C9803

== ENCOUNTER 2021-01-13 11:19 | Day surgery (SDC) | payer OTHER, SELFPAY ==
[2018-01-16 19:46] VITALS: BMI 25.2
--- NOTE | 2021-01-13 | PATH_ITS ---
[facility] Accession Number: [id number] . 01 Material submitted: . PART A: stomach - ANTRUM PART B: esophagus - MID ESOPHAGUS . 02 Diagnosis: A. Stomach, Antrum, Biopsy: Antral mucosa with no diagnostic abnormality. No evidence of Helicobacter on H/E stain. Negative for intestinal metaplasia. Negative for dysplasia and malignancy. . B. Mid Esophagus, Biopsy: Squamous epithelium with no diagnostic abnormality. Intraepithelial eosinophils are not increased. Negative for dysplasia and malignancy. [facility] 01/15/2021 1411 Local . 02 Comment: A. An immunohistochemical stain will be performed to evaluate for Helicobacter organisms and the results reported as an addendum. . 02 Electronically signed: . Conchita Leary MD, Pathologist NPI- [id number] . 01 Gross description: . Part A: ANTRUM: Received in formalin is 1 fragment(s) of lee, soft tissue measuring 0.3 x 0.3 x 0.3 cm submitted entirely in 1 cassette(s) Part B: MID ESOPHAGUS: Received in formalin are 3 fragment(s) of lee, soft tissue measuring 0.3 x 0.2 x 0.2 cm to 0.3 x 0.2 x 0.1 cm submitted entirely in 1 cassette(s) /KEARA 01/14/2021 0410 Local . 02 Pathologist provided ICD-10: R10.13 . 02 CPT . 717584, 000590, [id number] Performed at: 01 [facility] [address] [id number] MD Dereje Cardona MD Phone: [phone] [facility]formed at: [facility] [address] [place], [place] [id number] MD Conchita Leary MD Phone: [phone]
[2021-01-13] MEDS: LACTATED RINGERS 1,000 ML 42 ML IV (11:38)
[2021-01-13 11:50] VITALS: BP 139/83; PULSE 86; RESP 18; TEMP 36.1; O2SAT 97; BMI 34.0
--- NOTE | 2021-01-13 14:00 | PM.HP.1 ---
History of Present Illness History of Present Illness Date Patient Seen: 01/13/21 Time Patient Seen: 14:00 Chief complaint: SDC Narrative: I reviewed Dr Chino's note. Regurg, dsphagia, reflux. Patient History Medical History Anxiety Asthma Bug bite Cancer of left breast Cellulitis of right lower extremity Chronic pain Constipation COPD (chronic obstructive pulmonary disease) DDD (degenerative disc disease), cervical DDD (degenerative disc disease), lumbar Depression Fibromyalgia GERD (gastroesophageal reflux disease) HTN (hypertension) Melanoma Neuropathy Panic attacks Pneumonia Pneumothorax Raynaud's phenomenon SCC (squamous cell carcinoma) Stomach ulcer Urinary tract infection Surgical History History of section History of hysterectomy History of lumbar fusion History of reconstruction of left breast History of removal of Port-a-Cath Hx of LASIK Hx of left mastectomy Hx of tonsillectomy Family & Social History Social History: household members family,children Tobacco & Substance use: Tobacco type cigarettes Smoking Status Former smoker alcohol intake current alcohol intake frequency 0-2 drinks per day Substance Use Type does not use Meds Home Medications and Allergies Home Medications Medication Instructions Recorded Confirmed Type albuterol sulfate 90 mcg/actuation 2 puff INHALATION Q4-6H PRN 01/15/18 01/13/21 History aerosol inhaler diltiazem HCl 300 mg capsule,24 300 mg PO BEDTIME 01/15/18 01/13/21 History hr,extended release duloxetine 60 mg capsule,delayed 60 mg PO BID 01/15/18 01/13/21 History release fexofenadine 180 mg tablet 180 mg PO QPM 01/15/18 01/13/21 History meloxicam 15 mg tablet (Mobic) 15 mg PO BEDTIME 01/15/18 01/13/21 History nicotine (polacrilex) 2 mg gum 1 - 2 piece of gum PO Q1H 01/15/18 01/13/21 History (Nicorette) pregabalin 75 mg capsule (Lyrica) 75 mg PO BID 01/15/18 01/13/21 History pseudoephedrine HCl 30 mg tablet 30 mg PO Q4-6H PRN 01/15/18 01/13/21 History (Sudafed) tiotropium bromide 18 mcg capsule 2 inh INHALATION BEDTIME 01/15/18 01/13/21 History with inhalation device (Spiriva with HandiHaler) trazodone 50 mg tablet 25 - 50 mg PO BEDTIME 01/15/18 01/13/21 History hydromorphone 4 mg tablet 4 mg PO Q4H PRN #60 tab 01/20/18 01/13/21 Rx methocarbamol 500 mg tablet 1,500 mg PO TID PRN #60 tab 01/20/18 01/13/21 Rx promethazine 25 mg tablet 25 mg PO Q6H PRN #40 tab 01/20/18 01/13/21 Rx alprazolam 0.5 mg tablet 0.5 mg PO DAILY 02/05/19 01/13/21 History apixaban 5 mg tablet (Eliquis) See Rx Instructions .ROUTE 02/05/19 01/13/21 Rx .COMPLEX #30 tab clobetasol 0.05 % topical ointment 1 applic TOPICAL DIRECTED 02/05/19 01/13/21 History dicyclomine 10 mg capsule 10 mg PO TID 02/05/19 01/13/21 History estradiol 10 mcg vaginal tablet 10 mcg VAGINAL QWEEK 02/05/19 01/13/21 History fluticasone propionate 50 1 spray INTRANASAL DIRECTED 02/05/19 01/13/21 History mcg/actuation nasal spray,suspension hydrocodone 10 mg-acetaminophen 1 tab PO Q4-6H PRN 02/05/19 01/13/21 History 325 mg tablet lisinopril 10 mg tablet 10 mg PO DAILY 02/05/19 01/13/21 History montelukast 10 mg tablet 10 mg PO DAILY 02/05/19 01/13/21 History naloxone 4 mg/actuation nasal spray 02/05/19 History omeprazole 20 mg capsule,delayed 20 mg PO BID 02/05/19 01/13/21 History release diltiazem HCl 120 mg 120 mg PO QAM 01/12/21 01/13/21 History capsule,extended release 24 hr Allergies Allergy/AdvReac Type Severity Reaction Status Date / Time etodolac Allergy Severe Hives Verified 02/05/19 17:15 morphine Allergy Severe Hives Verified 02/05/19 17:15 nifedipine [From Procardia] Allergy Severe Hives Verified 02/05/19 17:15 adhesive tape AdvReac Intermediate Raised red Verified 02/05/19 17:15 area if left too long bupropion [From Wellbutrin] AdvReac Intermediate Keeps me Verified 02/05/19 17:15 awake olanzapine [From Zyprexa] AdvReac Intermediate Weird Verified 02/05/19 17:15 dreams propranolol AdvReac Intermediate Weird Verified 02/05/19 17:15 dreams Review of Systems Review of Systems ROS: Yes All systems reviewed with the patient and are negative except as otherwise documented Exam Vital Signs (past 8 hours): - 01/13/21 11:50 Temperature 97.0 F L Pulse Rate 86 Respiratory Rate 18 Blood Pressure 139/83 Pulse Oximetry 97 Oxygen Delivery Method Room Air Const General: cooperative and comfortable Orientation: alert HENMT Head: normocephalic Ears: external ears normal Nose: external nose normal Face and sinus: normal facial exam Mouth: oral mucosae normal Eyes General: appearance normal, both eyes and all related structures Neck Neck: normal visual inspection Chest Chest: normal inspection of the chest Resp Effort & Inspection: normal respiratory effort Auscultation: clear to auscultation bilaterally Cardio Rate: regular rate Rhythm: regular rhythm Heart Sounds: no murmurs GI Inspection: normal to inspection Palpation: soft and No tender Auscultation: normal bowel sounds Skin General: no rashes or lesions noted and No jaundice Neuro General: patient alert and moves all extremities Cognition: normal cognition Speech: speech normal Extrem General: no pedal edema Psych Appearance: grossly normal Assessment & Plan Assessment & Plan narrative: Afib. Plan for SHIRA soon. EGD requested first in light of the regurg, dysphagia, reflux symptoms. Off eliquis x 3 days.
--- NOTE | 2021-01-13 14:04 | PM.PREOP ---
Pre-operative Note COVID-19 COVID-19 status: Negative Result date/Date tested (Pos, Neg/Pending): 01/11/21 Interval Note History & Physical reviewed/Exam performed by Physician: Yes Changes to H&P: No ASA Class (for procedural sedation): III
--- NOTE | 2021-01-13 14:08 | PM.OP.ENDO ---
Operative Date/Time/Diagnoses Date of procedure: 01/13/21 Time of procedure: 14:08 Pre-op diagnosis: Dysphagia, gerd, epigastric pain Post-op diagnosis: same Procedure & Clinicians Study performed: egd with biopsies Procedure Notes SCOAP/Timeout: done Procedure in detail: After the risks and benefits were explained, written and verbal informed consent was obtained. The patient was brought into the procedure room and placed into the left lateral decubitus position. MAC was accomplished via anesthesiology. The scope was introduced into the mouth through the bite block and advanced under direct visualization to the 2nd portion of the duodenum. The scope was slowly withdrawn carefully examining the mucosa for any defects or lesions. Retroflexed views were accomplished in the stomach. The stomach was decompressed, the scope was then removed from the patient who tolerated the procedure well. Scope withdrawal time: na Sedation minutes: 10 Complications: none Impression: 1. Duodenum: No pathology appreciated from the bulb through to the 2nd portion. 2. Stomach: Minimal gastropathy noted in the antrum. Biopsy was thus required for exclusion of Helicobacter. 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 No bleeding. 3. Esophagus: The squamocolumnar junction correlated quite nicely with the GEJ. There was no evidence of any active esophagitis no strictures no Schatzki's ring. No overt pathology was appreciated throughout the entire course of the esophagus to explain how her swallowing difficulties. I therefore took several biopsies from mid esophagus to exclude eosinophilic infiltration. Post-procedure Plan for aftercare: 1. Await histopathology 2. Continue anti-reflux therapy. 3. Follow up in Cardiology and primary care. 4. No contraindication identified for trans esophageal echo. Disposition: PACU
[2021-01-13 14:28] VITALS: BP 131/83; PULSE 79; RESP 17; O2SAT 96
[2021-01-13 14:33] VITALS: BP 125/73; PULSE 81; RESP 10; O2SAT 96
[2021-01-13 14:38] VITALS: BP 133/81; PULSE 85; RESP 16; O2SAT 96
[2021-01-13 14:44] VITALS: BP 124/82; PULSE 87; RESP 16; TEMP 36.9; O2SAT 95
[2021-01-13 14:58] VITALS: BP 143/90; PULSE 84; RESP 16; TEMP 36.6; O2SAT 98
== END 2021-01-13 15:10 | disposition home or self-care (01) ==
PROVIDERS: Family Provider Physician Assistant Medical; PCP Physician Assistant Medical; Referring Provider Internal Medicine Gastroenterology; Visit Provider Internal Medicine Gastroenterology
PROC: 0DJ08ZZ Inspection of Upper Intestinal Tract, Via Natural or Artificial Opening Endoscopic (ICD-10-PCS; CPT 43235; principal; 2021-01-13 13:00)
DX: R13.10 Dysphagia, unspecified (principal); K21.9 Gastro-esophageal reflux disease without esophagitis; J44.9 Chronic obstructive pulmonary disease, unspecified; M79.7 Fibromyalgia
CPT/HCPCS: 43239; J2250; J2704

== ENCOUNTER → 2021-01-25 13:46 | Outpatient (CLI) | payer OTHER, SELFPAY ==
[2018-01-16 19:46] VITALS: BMI 25.2
[2021-01-25 15:05] LABS: COVID19 -Nasal RAPID Negative (Negative)
== END ==
PROVIDERS: Family Provider Physician Assistant Medical; PCP Physician Assistant Medical; Visit Provider Student in an Organized Health Care Education/Training Program
DX: Z01.812 Encounter for preprocedural laboratory examination (principal); Z20.822 Contact with and (suspected) exposure to COVID-19
CPT/HCPCS: 87635; C9803

== ENCOUNTER → 2021-01-27 09:06 | Outpatient (CLI) | payer OTHER, SELFPAY ==
[2018-01-16 19:46] VITALS: BMI 25.2
--- NOTE | 2021-01-27 | DI.ECHO.S_ITS ---
[facility] +---------+ [facility] +---------+ : : [id number] : [place] : : : : [id number] : : : : Phone: [phone]+ Echocardiogram Report + + :Name: NADJA ESTRADA Study Date: 01/27/2021 Height: 59 in : :[facility] ReadingLocation: Weight: 163 lb : : Gender: Female BSA: 1.7 m2 : :: 1955 Age: 65 yrs BP: 143/91 mmHg: :Reason For Study: DYSPNEA : :Ordering Physician: : :ROJELIO COLLADO Performed By: Mere Chan : :Referring: ROJELIO COLLADO : + + Interpretation Summary The patient was in atrial fibrillation with heart rates between 84-107 bpm during the exam. The left ventricle is normal in size and wall thickness. The ejection fraction is estimated to be 60-65%. E/E' med: 10.9 The right ventricle is normal in size and function. There is mild to moderate mitral regurgitation. There is moderate tricuspid regurgitation. The right ventricular systolic pressure is estimated to be at least 38 mmHg based on an estimated right atrial pressure of 3 mm Hg. The ascending aorta is mildly enlarged. Mild atherosclerotic plaque(s) in the aortic arch. There is mild luminal irregularity and echogenicity in the abdominal aorta, suggestive of aortic atherosclerotic disease. Procedure: A two-dimensional transthoracic echocardiogram with color flow and Doppler was performed. The study quality was technically adequate. There is no prior echocardiogram noted for this patient. The patient was in atrial fibrillation with heart rates between 84-107 bpm during the exam. Left Ventricle: The left ventricle is normal in size and wall thickness. There is no thrombus. The ejection fraction is estimated to be 60-65%. There are no focal wall motion abnormalities. Diastolic function could not be accurately assessed due to atrial fibrillation. E/E' med: 10.9. Right Ventricle: The right ventricle is normal in size and function. Atria: The left atrium is mildly dilated. The right atrium is mildly dilated. There is no Doppler evidence for an interatrial shunt. Mitral Valve: There is mild mitral annular calcification. There is mild to moderate mitral regurgitation. Aortic Valve: The aortic valve is trileaflet. The aortic valve opens well. There is no aortic valve stenosis. No aortic regurgitation is present. Tricuspid Valve: The tricuspid valve is normal. There is moderate tricuspid regurgitation. The right ventricular systolic pressure is estimated to be at least 38 mmHg based on an estimated right atrial pressure of 3 mm Hg. Pulmonic Valve: The pulmonic valve leaflets are thin and pliable; valve motion is normal. There is no pulmonic valvular regurgitation. Great Vessels: The aortic root is normal size. The ascending aorta is mildly enlarged. Mild atherosclerotic plaque(s) in the aortic arch. There is mild luminal irregularity and echogenicity in the abdominal aorta, suggestive of aortic atherosclerotic disease. The IVC is of normal diameter and collapses greater than 50% with a sniff. This suggests a low right atrial pressure of 3 mm Hg. Pericardium/ Pleura There is no pericardial effusion. There is no pleural effusion. MMode/2D Measurements & Calculations LVIDd: 4.2 cm LVOT diam: 2.1 cm LVIDs: 2.8 cm Ao root diam: 3.0 cm FS: 32.9 % asc Aorta Diam: 3.5 cm IVSd: 1.1 cm Ao Arch Diam (Prox Trans): 3.2 cm LVPWd: 0.91 cm LV mays. diameter/BSA (cm/m^2): 2.5 LV sys. diameter/BSA (cm/m^2): 1.7 LA A2 area: 20.1 cm2 RA long axis: 4.8 cm LA A4 area: 20.3 cm2 RA area: 16.8 cm2 LA length (vol): 5.9 cm RA vol: 49.6 ml LA vol: 59.0 ml RA : 29.3 ml/m2 LA vol index: 34.9 ml/m2 IVC diam: 1.8 cm RVD1 (basal): 3.2 cm TAPSE: 1.9 cm Doppler Measurements & Calculations Ao V2 max: 135.1 cm/sec LVOT Max Larry: 104.6 cm/sec Ao V2 mean: 96.3 cm/sec LV V1 max P.4 mmHg Ao max P.3 mmHg LV V1 VTI: 19.1 cm Ao mean P.1 mmHg KEARA(I,D): 2.9 cm2 Ao V2 VTI: 23.1 cm KEARA(V,D): 2.7 cm2 sev ratio: 0.83 KEARA indexed to BSA (cm^2/m^2): 1.7 MV E max larry: 137.3 cm/sec TR max larry: 258.9 cm/sec MV A max larry: 1.1 cm/sec TR max P.3 mmHg MV E/A: 129.7 PA V2 max: 135.4 cm/sec Med Peak E' Larry: 12.7 cm/sec PA V2 mean: 86.9 cm/sec E/E' med: 10.9 PA mean P.6 mmHg Lat Peak E' Larry: 14.4 cm/sec PA pr(Accel): 34.5 mmHg E/E' lat: 9.5 E/e' average: 10.2 MV dec time: 0.18 sec SV(LVOT): 66.8 ml Reading Physician:12:57 PM
--- NOTE | 2021-01-28 19:31 | DI.NM.S_ITS ---
DATE OF SERVICE: 01/27/2021 PROCEDURE: IV Lexiscan perfusion study. INDICATIONS: Shortness of breath, atrial fibrillation, hypertension hyperlipidemia RADIOPHARMACEUTICAL: 25.1 millicurie technetium-99m Myoview IV was injected at stress and 26.0 millicurie technetium-99m Myoview IV was injected at rest. CARDIAC STRESS: The patient underwent IV Lexiscan perfusion study under the supervision of an attending staff. She remained hemodynamically stable. Blood pressure 140/80. Baseline resting heart rate 93 with AFib. During stress, there were some nonspecific ST-T changes. The patient remained in AFib. Maximum heart rate 126 beats per minute. The patient developed chest discomfort with radiation to bilateral shoulders. On a scale of 1 to 10, it was 6 in intensity. It started getting better spontaneously in recovery. No aminophylline was required. RAW DATA: Breast shadow was seen. GATED STUDY: Resting LV ejection fraction 81 and stress LV ejection fraction 84 percent without any obvious wall motion abnormalities. Resting end-diastolic volume 62 mL. TID ratio 1.00, which is within normal limits. Lung/heart ratio 0.30, which is within normal limits. MYOCARDIAL PERFUSION SCAN: Stress supine and resting supine images revealed minimally decreased perfusion of anteroapex, which got resolved during stress prone images, suggestive of breast tissue attenuation artifact. No convincing ischemia or infarction. CONCLUSION: I will call this study a normal myocardial perfusion study with evidence of breast tissue attenuation artifact, which got completely resolved during prone images. Preserved left ventricular function without any obvious wall motion abnormalities. Underlying AFib. Had chest discomfort during Lexiscan infusion. Overall, this is a low-risk myocardial perfusion scan. Shandra Orozco - YAIR/rupal/shaggy doc#: [id number]/job#: [id number] dd: 01/28/2021 16:53:00 dt: 01/28/2021 19:11:00 DICTATING /COPIES TO: Sienna Mckeon MD COPIES MNE: ANNABEL;
== END ==
PROVIDERS: Family Provider Physician Assistant Medical; PCP Physician Assistant Medical; Referring Provider Internal Medicine Cardiovascular Disease; Visit Provider Internal Medicine Cardiovascular Disease
DX: R06.00 Dyspnea, unspecified (principal); R07.2 Precordial pain; I08.1 Rheumatic disorders of both mitral and tricuspid valves; I77.89 Other specified disorders of arteries and arterioles
CPT/HCPCS: 78452; 93017; 93306; A9502; J2785

== ENCOUNTER → 2021-02-24 08:41 | Outpatient (CLI) | payer OTHER, SELFPAY ==
[2018-01-16 19:46] VITALS: BMI 25.2
[2021-02-24 12:39] LABS: COVID19 -Nasal RAPID Negative (Negative)
== END ==
PROVIDERS: Family Provider Physician Assistant Medical; PCP Physician Assistant Medical; Visit Provider Nurse Practitioner
DX: Z20.822 Contact with and (suspected) exposure to COVID-19 (principal); Z01.812 Encounter for preprocedural laboratory examination
CPT/HCPCS: 87635; C9803

== ENCOUNTER → 2021-06-11 12:56 | Outpatient (CLI) | payer OTHER, SELFPAY ==
[2018-01-16 19:46] VITALS: BMI 25.2
[2021-06-11 14:06] LABS: COVID19 -Nasal RAPID Negative (Negative)
== END ==
PROVIDERS: Family Provider Physician Assistant Medical; PCP Physician Assistant Medical; Referring Provider Internal Medicine; Visit Provider Internal Medicine
DX: Z20.822 Contact with and (suspected) exposure to COVID-19 (principal)
CPT/HCPCS: 87635; C9803

== ENCOUNTER → 2021-06-11 13:01 | Outpatient (CLI) | payer OTHER, SELFPAY ==
[2018-01-16 19:46] VITALS: BMI 25.2
--- NOTE | 2021-06-16 09:34 | PM.PFT.1 ---
Pulmonary Function Test Referral & Results Date Patient Seen: 06/11/21 Requesting provider: Sienna Mckeon Results: The spirometry demonstrates an FVC of 2.39 L which is 99% of predicted. The FEV1 was measured at 1.39 L which is 76% of predicted. The FEV1/FVC ratio was 58 which is 75% of predicted. Following the administration of bronchodilator there was a 15% improvement in FEV1 and a 59% improvement in FEF 25-75% Lung volumes show an SVC of 2.39 L which is 103% of predicted. The diffusing capacity was measured at 9.68 which is 59% of predicted. No hemoglobin value was provided, so no correction for potential anemia could be made, if appropriate. The maximum voluntary ventilation was reduced Interpretation: This study demonstrates mild obstructive lung disease based on reduction FEV1 and FEV1/FVC ratio. There is evidence of benefit following bronchodilator as above particularly in small airway flow based on improvement in FEF 25-75% There is a mild reduction diffusing capacity is well suggesting disease at the capillary alveolar level Compared to PFTs performed in November 2020, current study is essentially unchanged
== END ==
PROVIDERS: Family Provider Physician Assistant Medical; PCP Physician Assistant Medical; Referring Provider Internal Medicine Cardiovascular Disease; Visit Provider Internal Medicine Cardiovascular Disease
DX: R06.02 Shortness of breath (principal); Z87.891 Personal history of nicotine dependence; Z20.822 Contact with and (suspected) exposure to COVID-19; J98.8 Other specified respiratory disorders
CPT/HCPCS: 87635; 94060; 94726; 94729; C9803

== ENCOUNTER → 2021-10-08 08:23 | Outpatient (CLI) | payer OTHER, SELFPAY ==
[2018-01-16 19:46] VITALS: BMI 25.2
--- NOTE | 2021-10-08 | DI.MG.S_ITS ---
UNILATERAL RIGHT DIGITAL DIAGNOSTIC MAMMOGRAM 3D/2D WITH ADDITIONAL VIEWS POST MASTECTOMY: 10/08/2021 CLINICAL: Additional evaluation requested from prior study. Comparison is made to exams dated: 09/22/2021 mammogram and 02/23/2017 mammogram - Located within [facility]. There are scattered fibroglandular elements in right breast. The possible benign 0.4 cm oval asymmetry in the right breast middle depth lateral region seen on the craniocaudal view only is not seen in additional views. No other significant masses or calcifications are seen in the breast. IMPRESSION: BENIGN The right breast asymmetry seen only on the screening mammogram likely respresents superimposed fibroglandular tissue and is benign. There is no mammographic evidence of malignancy. A 1 year screening mammogram is recommended. This exam was interpreted at Station ID: [id number]. NOTE: For mammograms, a report in lay terms will be sent to the patient. Approximately 15% of breast malignancies will not be visualized mammographically. In the management of a palpable breast mass, a negative mammogram must not discourage biopsy of a clinically suspicious lesion. Electronically Signed By: Jannet clark/:10/08/2021 09:19:23 letter sent: Normal Exam ACR BI-RADS Category 2: Benign Finding(s) 3342F
== END ==
PROVIDERS: Family Provider Physician Assistant Medical; PCP Physician Assistant Medical; Referring Provider Physician Assistant Medical; Visit Provider Physician Assistant Medical
DX: R92.8 Other abnormal and inconclusive findings on diagnostic imaging of breast (principal)
CPT/HCPCS: 77065; G0279

== ENCOUNTER → 2022-10-31 18:04 | Outpatient (ROUT) | payer OTHER, SELFPAY ==
[2018-01-16 19:46] VITALS: BMI 25.2
== END ==
PROVIDERS: Family Provider Physician Assistant Medical; PCP Physician Assistant Medical; Visit Provider Dermatology
DX: Z48.817 Encounter for surgical aftercare following surgery on the skin and subcutaneous tissue (principal)
CPT/HCPCS: 87070; 87075; 87205

== ENCOUNTER → 2022-12-27 12:54 | Outpatient (CLI) | payer OTHER, SELFPAY ==
[2018-01-16 19:46] VITALS: BMI 25.2
--- NOTE | 2022-12-27 | DI.CT.S_ITS ---
PROCEDURE: CT CHEST WO CON INDICATIONS: Chronic obstructive pulmonary disease, unspecified TECHNIQUE: Noncontrast 5 mm thick sections acquired from the pulmonary apices to the posterior costophrenic angles. 1 mm lung window, 5 mm thick coronal and sagittal and 7 mm axial MIP reformats were then acquired. For radiation dose reduction, the following was used: automated exposure control, adjustment of mA and/or kV according to patient size. COMPARISON: None. FINDINGS: Image quality: Good Lungs and pleura: Scarring/reticulation with moderate severe emphysematous changes. Small pulmonary nodules are present, for example in the right image 4/100 in the middle lobe. There also suspected prominent fissural lymph nodes. No pleural effusions. More focal scarring along the anterior lingula may be post radiation related. Mediastinum, heart, and esophagus: Patulous esophagus, nonspecific. No pathologic adenopathy by size criteria. There are coronary calcifications. Chest wall and thyroid: Thyroid is unremarkable. Chest wall is unremarkable. Breast postsurgical changes. Upper abdomen: Suspected hepatic steatosis partially seen. No gross abnormality in the upper abdomen otherwise. Bones: No acute or suspicious osseous finding. Exaggerated thoracic kyphosis. IMPRESSION: No acute abnormality in the chest. Moderate to severe emphysematous changes, along with areas of reticulation, and scarring/atelectasis. Given patient's presumed risk factors, consider enrollment in low-dose lung cancer screening or follow-up chest CT in 1 year for the above described small nodule/possible lymph nodes. Other findings as above. Coronary calcifications are present. Suspected hepatic steatosis. Dictated by: Joe Garcia M.D. on 12/27/2022 at 15:25 Approved by: Joe Garcia M.D. on 12/27/2022 at 15:31
== END ==
PROVIDERS: Family Provider Physician Assistant Medical; PCP Physician Assistant Medical; Referring Provider Internal Medicine Pulmonary Disease; Visit Provider Internal Medicine Pulmonary Disease
DX: J44.9 Chronic obstructive pulmonary disease, unspecified (principal); I25.10 Atherosclerotic heart disease of native coronary artery without angina pectoris
CPT/HCPCS: 71250

== ENCOUNTER → 2023-01-07 15:37 | Outpatient (CLI) | payer OTHER, SELFPAY ==
[2018-01-16 19:46] VITALS: BMI 25.2
--- NOTE | 2023-01-07 16:08 | DI.MRI.S_ITS ---
PROCEDURE: MR LUMBAR SPINE WO CON INDICATIONS: Lumbago w/ sciatica TECHNIQUE: Noncontrast sagittal T1 spin echo and T2 fast echo, sagittal STIR, and T2 fast spin echo through the lumbar spine. In cases with scoliosis, additional coronal T2 fast spin echo may be performed. COMPARISON: CR, XR LUMBAR SPINE 2 OR 3 VIEWS, 04/04/2018, 14:14. FINDINGS: Image quality: Excellent. Alignment and Curvature: Posterior fusion is present from L2 through L4. There is relatively good anatomic alignment. Bone Marrow: Marrow is of normal overall signal. No acute vertebral body compression fractures. Spinal Cord: Conus medullaris terminates at the L1 level. Visualized cord demonstrates normal signal and size. Paraspinous Soft Tissues: No paravertebral masses. Discs: Multilevel moderate disc desiccation. T12-L1: No disc bulge, spinal stenosis or foraminal narrowing. L1-L2: Minimal disc bulge without spinal stenosis or foraminal narrowing. Facet and ligamentum flavum hypertrophy are present. L2-L3: Minimal disc bulge without spinal stenosis or foraminal narrowing. Mild left foraminal narrowing with facet and ligamentum flavum hypertrophy. L3-L4: Minimal disc bulge with slight effacement of the thecal sac. Moderate bilateral foraminal narrowing with facet hypertrophy. L4-L5: Mild disc bulge without spinal stenosis. There is narrowing through the left subarticular recess. Facet hypertrophy is present. L5-S1: Mild disc bulge without spinal stenosis. Minimal left foraminal narrowing IMPRESSION: Posterior fusion from L2 through L4. [id number] bilateral foraminal narrowing most severe at L3-4 secondary to facet arthropathy. Dictated by: Jessica Price M.D. on 01/11/2023 at 12:29 Approved by: Jessica Price M.D. on 01/11/2023 at 14:39
== END ==
PROVIDERS: Family Provider Physician Assistant Medical; PCP Physician Assistant Medical; Referring Provider Acupuncturist; Visit Provider Acupuncturist
DX: M96.1 Postlaminectomy syndrome, not elsewhere classified (principal); M47.816 Spondylosis without myelopathy or radiculopathy, lumbar region; M54.40 Lumbago with sciatica, unspecified side; M48.061 Spinal stenosis, lumbar region without neurogenic claudication; Z98.1 Arthrodesis status
CPT/HCPCS: 72148

== ENCOUNTER 2024-05-25 12:50 | Emergency (ER) | payer OTHER, SELFPAY ==
[2018-01-16 19:46] VITALS: BMI 25.2
[2024-05-25 13:03] VITALS: BP 110/61; PULSE 85; RESP 17; TEMP 37.1; O2SAT 97; BMI 35.5
[2024-05-25 13:04] VITALS: PULSE 82; O2SAT 94
--- NOTE | 2024-05-25 13:09 | DI.CT.S_ITS ---
PROCEDURE: CT CERVICAL SPINE WO CON INDICATIONS: Neck pain s/p fall TECHNIQUE: Noncontrast 3 mm thick sections acquired from the skull base to the T4 level. Sagittal and coronal reformats were then constructed. For radiation dose reduction, the following was used: automated exposure control, adjustment of mA and/or kV according to patient size. COMPARISON: None. FINDINGS: Image quality: Excellent. Bones: No fractures or dislocations. Visualized superior ribs are intact. Midcervical spine disc space narrowing and hypertrophic facet joints associated with multilevel right foraminal stenosis Soft tissues: Prevertebral soft tissues are normal in thickness. No paravertebral hematomas. No apical pneumothoraces. Advanced biapical pulmonary emphysema right apical pulmonary scarring IMPRESSION: Degenerative disc disease and arthropathy in the mid cervical spine without fracture or traumatic malalignment Approved by: Shemar Lepe M.D. on 05/25/2024 at 13:36
--- NOTE | 2024-05-25 13:09 | DI.CT.S_ITS ---
PROCEDURE: CT HEAD/BRAIN WO CON INDICATIONS: Dizziness, blurred vision s/p head strike TECHNIQUE: Noncontrast 4.5 mm thick angled axial sections acquired from the foramen magnum to the vertex, with coronal and sagittal reformats. For radiation dose reduction, the following was used: automated exposure control, adjustment of mA and/or kV according to patient size. COMPARISON: None. FINDINGS: Image quality: Diagnostic. CSF spaces: Basal cisterns are patent. No extra-axial fluid collections. Ventricles are normal in size and shape. Brain: No midline shift. No intracranial masses or hemorrhage. Yen-white matter interface is normal. Skull and face: Calvarium and visualized facial bones are intact, without suspicious lesions. Sinuses: Visualized sinuses and mastoids are clear. IMPRESSION: Moderate atrophy and chronic ischemic change without intracranial hemorrhage or mass effect Approved by: Shemar Lepe M.D. on 05/25/2024 at 13:33
[2024-05-25 13:24] VITALS: BP 115/68; PULSE 75; O2SAT 95
[2024-05-25 13:30] VITALS: BP 116/71; PULSE 77; O2SAT 95
[2024-05-25 14:00] VITALS: BP 118/75; PULSE 74; O2SAT 94
--- NOTE | 2024-05-25 14:43 | ED_ITS ---
HPI - Head Injury <Garcia Pratt PA-C - Last Filed: 05/25/24 14:53> General Chief complaint: Head Injury Stated complaint: Fell thurs hit head on car. head px blurry vision Time Seen by Provider: 05/25/24 12:54 Source: patient Mode of arrival: Wheelchair History of Present Illness HPI Narrative: This patient is a 69-year-old female that sustained a ground level fall as she attempted to get out of the car 3 days ago. She apparently sustained a head strike on the door and landed on her right hip. She has been experiencing a low-grade headache and blurred vision. The patient has not seen her PCP for today's chief complaint. She is complaining of, ?a little? neck pain. She denies paresthesias to the bilateral upper extremities, decreased range of motion of the neck, dysphagia, tinnitus or vertiginous related symptoms. Patient denies any previous skull fracture or intracranial bleed. The patient states that she currently takes Eliquis for atrial fibrillation. Related Data Home Medications Medication Instructions Recorded Confirmed albuterol sulfate 90 mcg/actuation 2 puff inhalation Q4-6H PRN Asthma 01/15/18 01/13/21 aerosol inhaler diltiazem HCl 300 mg capsule,24 300 mg PO BEDTIME 01/15/18 01/13/21 hr,extended release duloxetine 60 mg capsule,delayed 60 mg PO BID 01/15/18 01/13/21 release fexofenadine 180 mg tablet 180 mg PO QPM 01/15/18 01/13/21 meloxicam 15 mg tablet (Mobic) 15 mg PO BEDTIME 01/15/18 01/13/21 nicotine (polacrilex) 2 mg gum 1 - 2 piece of gum PO Q1H 01/15/18 01/13/21 (Nicorette) pregabalin 75 mg capsule (Lyrica) 75 mg PO BID 01/15/18 01/13/21 pseudoephedrine HCl 30 mg tablet 30 mg PO Q4-6H PRN Allergies 01/15/18 01/13/21 (Sudafed) tiotropium bromide 18 mcg capsule 2 inh inhalation BEDTIME 01/15/18 01/13/21 with inhalation device (Spiriva with HandiHaler) trazodone 50 mg tablet 25 - 50 mg PO BEDTIME 01/15/18 01/13/21 alprazolam 0.5 mg tablet 0.5 mg PO DAILY 02/05/19 01/13/21 clobetasol 0.05 % topical ointment 1 applic topical DIRECTED 02/05/19 01/13/21 dicyclomine 10 mg capsule 10 mg PO TID 02/05/19 01/13/21 estradiol 10 mcg vaginal tablet 10 mcg vaginal QWEEK 02/05/19 01/13/21 fluticasone propionate 50 1 spray intranasal DIRECTED 02/05/19 01/13/21 mcg/actuation nasal spray,suspension hydrocodone 10 mg-acetaminophen 1 tab PO Q4-6H PRN pain 02/05/19 01/13/21 325 mg tablet lisinopril 10 mg tablet 10 mg PO DAILY 02/05/19 01/13/21 montelukast 10 mg tablet 10 mg PO DAILY 02/05/19 01/13/21 naloxone 4 mg/actuation nasal spray 02/05/19 omeprazole 20 mg capsule,delayed 20 mg PO BID 02/05/19 01/13/21 release diltiazem HCl 120 mg 120 mg PO QAM 01/12/21 01/13/21 capsule,extended release 24 hr Previous Rx's Medication Instructions Recorded hydromorphone 4 mg tablet 4 mg PO Q4H PRN Pain, Severe 01/20/18 (7-10) #60 tabs methocarbamol 500 mg tablet 1,500 mg (3 x 500 mg) PO TID PRN 01/20/18 Muscle Spasm #60 tabs promethazine 25 mg tablet 25 mg PO Q6H PRN Nausea #40 tabs 01/20/18 apixaban 5 mg tablet (Eliquis) See Rx Instructions PO .COMPLEX 02/05/19 #30 tabs Allergies Allergy/AdvReac Type Severity Reaction Status Date / Time etodolac Allergy Severe Hives Verified 05/25/24 13:08 morphine Allergy Severe Hives Verified 05/25/24 13:08 nifedipine [From Procardia] Allergy Severe Hives Verified 05/25/24 13:08 adhesive tape AdvReac Intermediate Raised red Verified 05/25/24 13:08 area if left too long bupropion [From Wellbutrin] AdvReac Intermediate Keeps me Verified 05/25/24 13:08 awake olanzapine [From Zyprexa] AdvReac Intermediate Weird Verified 05/25/24 13:08 dreams propranolol AdvReac Intermediate Weird Verified 05/25/24 13:08 dreams Review of Systems <Garcia Pratt PA-C - Last Filed: 05/25/24 14:53> Review of Systems Narrative: General: See HPI HEENT: See HPI Neuro: See HPI All other review of systems have been reviewed and are ultimately negative unless otherwise stated in the HPI. Patient History <Garcia Pratt PA-C - Last Filed: 05/25/24 14:53> Medical History Pneumothorax Constipation Urinary tract infection GERD (gastroesophageal reflux disease) Pneumonia Raynaud's phenomenon Fibromyalgia Neuropathy Cellulitis of right lower extremity Bug bite Anxiety Stomach ulcer HTN (hypertension) DDD (degenerative disc disease), lumbar Chronic pain DDD (degenerative disc disease), cervical Panic attacks Depression Asthma COPD (chronic obstructive pulmonary disease) SCC (squamous cell carcinoma) Melanoma Cancer of left breast Surgical History History of reconstruction of left breast History of removal of Port-a-Cath Hx of left mastectomy History of section History of lumbar fusion Hx of tonsillectomy History of hysterectomy Hx of LASIK Social History household members: family and children Smoking Status: Former smoker alcohol intake: current Smoking Status: Former smoker alcohol intake frequency: 0-2 drinks per day Substance Use Type: does not use Exam <Garcia Pratt PA-C - Last Filed: 05/25/24 14:53> Initial Vital Signs Initial Vital Signs: Vital Signs Temperature 98.7 F 05/25/24 13:03 Pulse Rate 85 05/25/24 13:03 Respiratory Rate 17 05/25/24 13:03 Blood Pressure 110/61 05/25/24 13:03 Pulse Oximetry 97 05/25/24 13:03 Oxygen Delivery Method Room Air 05/25/24 13:03 Const General: cooperative, healthy appearing, comfortable, well developed and well groomed [facility] Head: normal to inspection, normocephalic and atraumatic Ears: hearing grossly normal bilaterally, external ears normal, TM's normal bilaterally, EAC's normal and mastoids normal Face and sinus: normal facial exam Mouth: oral mucosae normal, lip normal and tongue normal Throat: posterior oropharynx normal, tonsils normal and uvula midline Eyes General: Yes appearance normal, both eyes and all related structures Visual Lin: normal visual lin by confrontation Alignment and Position: alignment normal and position normal Periorbital: periorbital findings normal Pupils: PERRL, normal by confrontation and accommodation normal EOM: EOM intact bilaterally Neck Neck: normal visual inspection, full ROM, no meningeal signs, trachea midline and supple Resp Effort & Inspection: normal respiratory effort Auscultation: clear to auscultation bilaterally Cardio Rate: regular rate Rhythm: regular rhythm Heart Sounds: S1 normal and S2 normal Back/Spine/Pelvis Back: normal to inspection and back tenderness Cervical Spine: cervical ROM normal Thoracic/Lumbar Spine: thoracic and lumbar spine normal to inspection Skin General: no rashes or lesions noted, elasticity normal and turgor normal Trauma: no lacerations or abrasions Neuro General: patient alert, patient awake, patient oriented x3 and gait normal Extrem General: normal to inspection, full ROM and capillary refill normal Psych Appearance: grossly normal and well kempt Mood: congruent mood Attitude: cooperative <Jaron Corado DO - Last Filed: 05/25/24 15:02> Initial Vital Signs Initial Vital Signs: Vital Signs Temperature 98.7 F 05/25/24 13:03 Pulse Rate 85 05/25/24 13:03 Respiratory Rate 17 05/25/24 13:03 Blood Pressure 110/61 05/25/24 13:03 Pulse Oximetry 97 05/25/24 13:03 Oxygen Delivery Method Room Air 05/25/24 13:03 Course <Garcia Pratt PA-C - Last Filed: 05/25/24 14:53> Course Course Narrative: Patient was seen and examined. CTs of the head and cervical spine were ordered, performed and interpreted by the radiologist with no acute findings noted. I notified the patient of the negative results and she was prepped for discharge home. In conclusion, I do not believe the patient sustained any type of skull fracture, intracranial bleed or cervical fracture. The patient has likely sustained a closed head injury/concussion. She appears clinically stable for outpatient follow up. Patient understands the treatment plan. No additional questions at the time of discharge and she will follow up as requested. Orders Ordered: ED Orders 05/25/24 13:09 CT cervical spine wo con Stat CT head/brain wo con Stat Vital Signs Vital signs: Vital Signs - 8 hr 05/25/24 13:03 05/25/24 13:04 05/25/24 13:24 Temperature 98.7 F Pulse Rate 85 82 Respiratory Rate 17 Blood Pressure 110/61 115/68 Pulse Oximetry 97 94 Oxygen Delivery Method Room Air 05/25/24 13:24 05/25/24 13:30 05/25/24 13:30 Temperature Pulse Rate 75 77 Respiratory Rate Blood Pressure 116/71 Pulse Oximetry 95 95 Oxygen Delivery Method 05/25/24 14:00 05/25/24 14:00 05/25/24 14:48 Temperature Pulse Rate 74 73 Respiratory Rate Blood Pressure 118/75 118/65 Pulse Oximetry 94 97 Oxygen Delivery Method <Jaron Corado DO - Last Filed: 05/25/24 15:02> Orders Ordered: ED Orders 05/25/24 13:09 CT cervical spine wo con Stat CT head/brain wo con Stat Vital Signs Vital signs: Vital Signs - 8 hr 05/25/24 13:03 05/25/24 13:04 05/25/24 13:24 Temperature 98.7 F Pulse Rate 85 82 Respiratory Rate 17 Blood Pressure 110/61 115/68 Pulse Oximetry 97 94 Oxygen Delivery Method Room Air 05/25/24 13:24 05/25/24 13:30 05/25/24 13:30 Temperature Pulse Rate 75 77 Respiratory Rate Blood Pressure 116/71 Pulse Oximetry 95 95 Oxygen Delivery Method 05/25/24 14:00 05/25/24 14:00 05/25/24 14:48 Temperature Pulse Rate 74 73 Respiratory Rate Blood Pressure 118/75 118/65 Pulse Oximetry 94 97 Oxygen Delivery Method MDM - Head Injury <Garcia Pratt PA-C - Last Filed: 05/25/24 14:53> Differential Diagnosis Differential diagnosis: Likely concussion without loss of consciousness, epidural hematoma, closed head injury, subarachnoid hematoma, postconcussion syndrome and subdural hematoma Medical Records Attestation: I reviewed the patient's medical records. Discharge Plan Departure Patient Disposition: Home Clinical Impression: Concussion without loss of consciousness Instructions: Concussion Activity Restrictions/Additional Instructions: Rest the remainder of the weekend Consider Tylenol every 8 hours as needed for pain control All your PCP next week as a recheck Return here for any new, emergent concerns or if you worsen in any way Prescriptions: No Action hydrocodone-acetaminophen 10-325 mg tablet 1 tab PO Q4-6H PRN (Reason: pain) alprazolam 0.5 mg tablet 0.5 mg PO DAILY lisinopril 10 mg tablet 10 mg PO DAILY omeprazole 20 mg capsule,delayed release(DR/EC) 20 mg PO BID montelukast 10 mg tablet 10 mg PO DAILY clobetasol 0.05 % ointment 1 applic topical DIRECTED fluticasone propionate 50 mcg/actuation spray,suspension 1 spray intranasal DIRECTED dicyclomine 10 mg capsule 10 mg PO TID estradiol 10 mcg tablet 10 mcg vaginal QWEEK naloxone 4 mg/actuation spray,non-aerosol Eliquis 5 mg tablet See Rx Instructions .ROUTE .COMPLEX Qty: 30 0RF Rx Instructions: take 10 mg by mouth twice daily for 7 days; then 5 mg twice daily diltiazem HCl 120 mg capsule,extended release 24hr 120 mg PO QAM trazodone 50 mg Tablet 25 - 50 mg PO BEDTIME meloxicam [Mobic] 15 mg Tablet 15 mg PO BEDTIME diltiazem HCl 300 mg Capsule,Extended Release 24 Hr 300 mg PO BEDTIME fexofenadine 180 mg Tablet 180 mg PO QPM pseudoephedrine HCl [Sudafed] 30 mg Tablet 30 mg PO Q4-6H PRN (Reason: Allergies) albuterol sulfate 90 mcg/actuation Hfa Aerosol Inhaler 2 puff INHALATION Q4-6H PRN (Reason: Asthma) Spiriva with HandiHaler 18 mcg Capsule, W/Inhalation Device 2 inh INHALATION BEDTIME duloxetine 60 mg Capsule,Delayed Release(Dr/Ec) 60 mg PO BID Patient Comments: takes qam and qpm (1800) pregabalin [Lyrica] 75 mg Capsule 75 mg PO BID nicotine (polacrilex) [Nicorette] 2 mg Gum 1 - 2 piece of gum PO Q1H methocarbamol 500 mg Tablet 1,500 mg PO TID PRN (Reason: Muscle Spasm) Qty: 60 0RF hydromorphone 4 mg Tablet 4 mg PO Q4H PRN (Reason: Pain, Severe (7-10)) Qty: 60 0RF promethazine 25 mg Tablet 25 mg PO Q6H PRN (Reason: Nausea) Qty: 40 0RF Referrals: Mica Piedra PA-C [Primary Care Provider] - Stand Alone Forms: Patient Portal/API/Survey ED Sign-out <Jaron Corado DO - Last Filed: 05/25/24 15:02> Cosign ED Attending Cosignature Attestation: Dr Corado Co-Sign Statement: I was available for consultation during this patient's emergency department visit. This chart is signed by myself for administrative purposes only. I did not have direct contact with this patient during this visit. They were seen independently by the APC.
[2024-05-25 14:48] VITALS: BP 118/65; PULSE 73; O2SAT 97
== END 2024-05-25 14:53 | disposition home or self-care (01) ==
PROVIDERS: Emergency Provider Physician Assistant; Family Provider Physician Assistant Medical; PCP Physician Assistant Medical
DX: S06.0X0A Concussion without loss of consciousness, initial encounter (principal); W22.8XXA Striking against or struck by other objects, initial encounter
CPT/HCPCS: 70450; 72125; 99281; 99284